=== PATIENT | female | born 1935 | race African-American/Black ===

== ENCOUNTER → 2019-01-29 | Outpatient (CLI) | payer OTHER ==
[~2019-01-29] MED LIST: CLON0.1T PO; DOCU-109 PO; FAMO-63 PO; FURO-69 PO; IRON; LEVO25TA55 PO; MULT1TAB52 PO; REGADENOSON 0.4 MG/5 ML DISP.SYRIN. IV ONE
--- NOTE | 2019-01-29 13:12 | CARD ---
MR#: [id number] Date of Study: 01/29/2019 Ordering Physician: GARY RAY, Referring Physician: GARY RAY Tech: Vivien Bergman RDCS APPROVED REPORT EXAM: Two-dimensional and M-mode echocardiogram with Doppler and color Doppler. Other Information Quality : AverageHR: 100bpm Rhythm : Tachycardia INDICATION SSS Surgery/Intervention ICD/Pacemaker: RISK FACTORS Hypertension 2D DIMENSIONS RVDd2.1 (2.9-3.5cm)Left Atrium(2D)2.7 (1.6-4.0cm) IVSd1.3 (0.7-1.1cm)Aortic Root(2D)3.0 (2.0-3.7cm) LVDd3.6 (3.9-5.9cm)LVOT Diameter2.1 (1.8-2.4cm) PWd1.3 (0.7-1.1cm)LVDs2.4 (2.5-4.0cm) FS (%) 33.0 %SV34.7 ml LVEF(%)62.5 (>50%) Aortic Valve AoV Peak Ramin.170.8cm/sAoV VTI31.8cm AO Peak GR.11.7mmHgLVOT Peak Ramin.113.5cm/s AO Mean GR.6mmHgAVA (VMAX)2.25cm2 ROSA (VTI)2.82ir5MK P 1/2 Hrzf688pk Mitral Valve MV E Xmhuqnyw148.8cm/sMV E Peak Gr.8mmHg MV DECEL JULG908htCC A Npqkabrr32.4cm/s MV E Mean Gr.3mmHgE/A Ratio5.0 MV A Kfeiifdb46ja Pulmonary Valve PV Peak Gccxgafi68.3cm/s Tricuspid Valve TR P. Ogijqadg056hb/sRAP TNFQTDDB2xcPb TR Peak Gr.31blFpHZQY32pfDd LEFT VENTRICLE The left ventricle is normal size. There is mild concentric left ventricular hypertrophy. The left ve ntricular systolic function is normal. The Ejection Fraction is 55-60%. There is normal LV segmental wall motion. RIGHT VENTRICLE The right ventricle is normal size. There is normal right ventricular wall thickness. The right ventr icular systolic function is normal. ATRIA The left atrium size is normal. The right atrium size is normal. The interatrial septum is intact wit h no evidence for an atrial septal defect or patent foramen ovale as noted on 2-D or Doppler imaging. AORTIC VALVE The aortic valve is mildly calcified. The aortic valve is trileaflet. Doppler and Color Flow revealed mild aortic regurgitation. There is no significant aortic valvular stenosis. There is no aortic valv ular vegetation. MITRAL VALVE The mitral valve is thickened but opens well. There is no evidence of mitral valve prolapse. There is no mitral valve stenosis. Doppler and Color-flow revealed mild mitral regurgitation. TRICUSPID VALVE The tricuspid valve is normal in structure and function. Doppler and Color Flow revealed mild tricusp id regurgitation. There is moderate pulmonary hypertension. The PA pressure was estimated at 56 mmHg. There is no tricuspid valve prolapse or vegetation. There is no tricuspid valve stenosis. PULMONIC VALVE The pulmonic valve is not well visualized. GREAT VESSELS The aortic root is normal in size. The ascending aorta is normal in size. The IVC is normal in size a nd collapses >50% with inspiration. PERICARDIAL EFFUSION There is no evidence of significant pericardial effusion. Critical Notification Critical Value: No <Conclusion> The left ventricular systolic function is normal. The Ejection Fraction is 55-60%. There is normal LV segmental wall motion. Mild aortic regurgitation. Mild mitral regurgitation. Mild tricuspid regurgitation. There is moderate pulmonary hypertension. The PA pressure was estimated at 56 mmHg. There is no evidence of significant pericardial effusion. Signed by : Gary Ray, Electronically Approved : 01/29/2019 13:11:45
--- NOTE | 2019-01-29 14:04 | RAD ---
MR#: [id number] Date of Study: 01/29/2019 Ordering Physician: GARY MARTIN Referring Physician: PEDRO CUNHA Tech: RT Shaggy StevensonR) (N) APPROVED REPORT Test Type: Pharmacological Stress Nurse/Tech: Judith Bellamy RN Test Indications: nonsustainable V tach Cardiac History: HTN, pacemaker Medications: See EMR Medical History: See EMR Resting ECG: SR with first degree AV block at 0.24 Resting Heart Rate: 87 bpm Resting Blood Pressure: 220/113mmHg Pretest Chest Pain: No chest pain Nurse/Tech Notes S1 S2 heart tones. Lung sounds clear. Consent: The procedure was explained to the patient in lay terms. Informed consent was witnessed. Westley eout was entered into [employer]. History and Stress Test performed by RADHA Prado [facility]. Details Pharmacologic stress testing was performed using 0.4mg per 5ml of regadenoson given intravenously ove r 7-10 seconds. Stress Symptoms Dyspnea, Nausea POST EXERCISE Reason for Termination: Infusion complete Max HR: 114 bpm Max Blood Pressure: 199/101mmHg Blood Pressure response to exercise: Normal blood pressure response during stress.Normal blood pressu re response during stress. Chest Pain: No. Arrhythmia: No. ST Change: No. INTERPRETATION Stress EKG Conclusion: No evidence of stress induced EKG changes. Imaging Protocol IMAGE PROTOCOL: Rest Tc-99m/stress Tc-99m 1 day Rest: Stress: Viability: Radiopharm.Tc99m NgrafphfcAl45u Sestamibi Dose10.1mCi 33mCi Duration 10min. 10min. Img Date 01/29/2019 01/29/2019 Inj-Img Sors41hda. 60min. Rest Admin Site:IV - Right AntecubitalAdministrator:RT Elva (Stacey)(N) Stress Admin Site: IV - Right AntecubitalAdministrator: RADHA Prado STRESS DATA End Diast. Vol.66.0mlAv. Heart Rate87.0bpm End Syst. Vol.22.0mlCO Index BSA0.0L/min Myocardial Sxak282.0gEject. Oiznkdiw25.0% Stress Rates Pk. Fill Rate3.47EDV/secLVtime Pk. Fill 145.60msec Pk. Empty Rate4.84ESV/secLVtime Pk. Sgudc806.29msec 11/20 Pk. Fill0.90EDV/sec Stress Scores Regional WT2.00Summed WT17.00 Regional WM0.00Summed WM2.00 The rest and stress images show normal perfusion, normal contraction and thickening. LV Perf. Quant 17 Seg. SSS0.00 17 Seg. SRS0.00 17 Seg. SDS0.00 Stress Defect Extent (% LAD)0.00Rest Defect Extent (% LAD)0.00Rev. Defect Extent (% LAD)0.00 Stress Defect Extent (% LCX) 0.00Rest Defect Extent (% LCX)0.00Rev. Defect Extent (% LCX)0.00 Stress Defect Extent (% RCA)0.00Rest Defect Extent (% RCA)0.00Rev. Defect Extent (% RCA)0.00 Stress Defect Extent (% ABDOULAYE)0.00Rest Defect Extent (% ABDOULAYE)0.00Rev. Defect Extent (% ABDOULAYE)0.00 Other Information Quality:Good Risk Assessment: Low Risk Conclusion 1. No evidence of EKG changes with stress testing. 2. Normal perfusion at stress/rest. 3. Low risk study. 4. EF > 60%. Signed by : Mark Lemon, Electronically Approved : 01/29/2019 14:04:06
== END | disposition home or self-care (01) ==
LOC: NM 10:09
PROVIDERS: ATTEND Internal Medicine Cardiovascular Disease
DX: I08.3 Combined rheumatic disorders of mitral, aortic and tricuspid valves (principal); I27.20 Pulmonary hypertension, unspecified; I44.0 Atrioventricular block, first degree; I49.5 Sick sinus syndrome; I47.2 Ventricular tachycardia; I10 Essential (primary) hypertension; Z95.0 Presence of cardiac pacemaker
CPT/HCPCS: 78452; 93017; 93306; 96374; A9500; J2785

== ENCOUNTER → 2020-02-08 | Outpatient (CLI) | payer OTHER, MEDICAID ==
[~2020-02-08] MED LIST changes: -REGADENOSON 0.4 MG/5 ML DISP.SYRIN. IV ONE
--- NOTE | 2020-02-08 16:05 | CARD ---
MR#: [id number] Date of Study: 02/08/2020 Ordering Physician: GARY MARTIN, Referring Physician: GARY MARTIN, Tech: Yenny Mccallum APPROVED REPORT EXAM: Two-dimensional and M-mode echocardiogram with Doppler and color Doppler. Other Information Quality : AverageHR: 82bpm INDICATION Arrhythmia Surgery/Intervention Pacemaker: Date: 2012 RISK FACTORS Hypertension 2D DIMENSIONS Left Atrium(2D)2.6 (1.6-4.0cm)IVSd1.5 (0.7-1.1cm) Aortic Root(2D)3.1 (2.0-3.7cm)LVDd3.4 (3.9-5.9cm) LVOT Diameter1.8 (1.8-2.4cm)PWd1.9 (0.7-1.1cm) LVDs2.3 (2.5-4.0cm)LVEF(%)61.0 (>50%) Aortic Valve AoV Peak Ramin.152.8cm/sAoV VTI28.0cm AO Peak GR.9.3mmHgLVOT Peak Ramin.93.6cm/s LVOT VTI 20.52cmAO Mean GR.5mmHg AI P 1/2 Ksti275mg Mitral Valve MV E Xsblasvz44.1cm/sMV E Peak Gr.109mmHg MV DECEL HDRD496awBD A Zzccnosx76.0cm/s MV E Mean Gr.2mmHgMV QGK92mr E/A Ratio2.2MVA (PHT)4.63cm2 TDI E/Lateral E'13.5E/Medial E'20.1 Pulmonary Valve PV Peak Yurginik075.3cm/sPV Peak Grad.5mmHg Tricuspid Valve TR P. Asubgjvz254sk/sRAP EFFHKSOQ1jpAu TR Peak Gr.96ytIbRCVB79hmAf Pulmonary Vein S1 Nbwiesfs02.6cm/sD2 Uelywcqe59.8cm/s PVa pscmvbqy787xfds LEFT VENTRICLE The left ventricle is normal size. There is moderate concentric left ventricular hypertrophy. The lef t ventricular systolic function is normal and the ejection fraction is within normal range. The Eject ion Fraction is 55-60%. There is normal LV segmental wall motion. Transmitral Doppler flow pattern is Grade II-pseudonormal filling dynamics. RIGHT VENTRICLE The right ventricle is normal size. There is normal right ventricular wall thickness. The right ventr icular systolic function is normal. There are probable device leads in the right ventricle and atrium . ATRIA The left atrium size is normal. The right atrium size is normal. The interatrial septum is intact wit h no evidence for an atrial septal defect or patent foramen ovale as noted on 2-D or Doppler imaging. AORTIC VALVE The aortic valve is normal in structure and function. Doppler and Color Flow revealed trace aortic re gurgitation. There is no significant aortic valvular stenosis. MITRAL VALVE The mitral valve is thickened but opens well. There is no evidence of mitral valve prolapse. There is no mitral valve stenosis. Doppler and Color-flow revealed mild to moderate mitral regurgitation. TRICUSPID VALVE The tricuspid valve is normal in structure and function. Doppler and Color Flow revealed mild to mode rate tricuspid regurgitation with an estimated PAP of 56 mmHg. There is no tricuspid valve stenosis. PULMONIC VALVE The pulmonic valve is not well visualized. Doppler and Color Flow revealed mild pulmonic valvular reg urgitation. GREAT VESSELS The aortic root is normal in size. The IVC is normal in size and collapses >50% with inspiration. PERICARDIAL EFFUSION There is no evidence of significant pericardial effusion. Critical Notification Critical Value: No <Conclusion> The left ventricle is normal size. The left ventricular systolic function is normal and the ejection fraction is within normal range. The Ejection Fraction is 55-60%. There is moderate concentric left ventricular hypertrophy. Doppler and Color Flow revealed trace aortic regurgitation. There is no significant aortic valvular stenosis. Doppler and Color-flow revealed mild to moderate mitral regurgitation. Doppler and Color Flow revealed mild to moderate tricuspid regurgitation with an estimated PAP of 56 mmHg. Signed by : Marc Dolan MD Electronically Approved : 02/08/2020 16:05:19
== END | disposition home or self-care (01) ==
LOC: ECHO 13:35
PROVIDERS: ATTEND Internal Medicine Cardiovascular Disease
DX: I08.8 Other rheumatic multiple valve diseases (principal); I49.5 Sick sinus syndrome
CPT/HCPCS: 93306

== ENCOUNTER 2021-01-23 11:22 | Inpatient (IN) | payer OTHER, MEDICAID ==
[~2021-01-23] VITALS: Ht 157.5 cm; Wt 52.5 kg
[~2021-01-23 11:22] MED LIST changes: +MULT-445 PO; -MULT1TAB52 PO
[2021-01-23 12:06] LABS: BILIRUBIN,URINE NEGATIVE (NEG); CLARITY,URINE CLEAR; COLOR,URINE YELLOW; NITRITE,URINE NEGATIVE (NEG); PROTEIN,URINE 30 mg/dL (NEG-TRACE); UROBILINOGEN,URINE 0.2 mg/dL (0.2 mg/dL)
--- NOTE | 2021-01-23 12:15 | RAD ---
EXAM: Chest, single view. HISTORY: Palpitations. COMPARISON: None. FINDINGS: A frontal view of the chest obtained. There is no infiltrate, pleural effusion or pneumotho rax. There is cardiomegaly. There is a cardiac pacemaker with leads overlying expected position. IMPRESSION: No acute pulmonary finding. Cardiomegaly. Electronically signed by: Rivka Garcia MD (01/23/2021 12:13 PM) [id number]
[2021-01-23 12:21] LABS: BACTERIA,URINE 0 /HPF (0-FEW); WBC,URINE OCC /HPF (0-4)
[2021-01-23 12:30] LABS: BASO # 0.1 x10^3/uL (0.0-0.2); BASO % 1 % (0-3); EOS # 0.1 x10^3/uL (0.0-0.7); EOS % 1 % (0-3); HEMATOCRIT 37.5 % (36.0-47.0); HEMOGLOBIN 12.3 g/dL (12.0-15.5); LYMPH # 0.7 x10^3/uL (1.0-4.8); LYMPH % 10 % (24-48); MEAN CORPUSCULAR HEMOGLOBIN 27 pg (25-35); MEAN CORPUSCULAR HGB CONC 33 g/dL (31-37); MEAN CORPUSCULAR VOLUME 83 fL (79-100); MONO # 0.3 x10^3/uL (0.0-1.1); MONO % 4 % (0-9); NEUT % 84 % (31-73); PLATELET COUNT 277 x10^3/uL (140-400); RED CELL DISTRIBUTION WIDTH 16.5 % (11.5-14.5); WHITE BLOOD COUNT 7.2 x10^3/uL (4.0-11.0)
--- NOTE | 2021-01-23 12:31 | EKG ---
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
[2021-01-23 13:02] LABS: CALCIUM 8.9 mg/dL (8.5-10.1); CREATININE 0.9 mg/dL (0.6-1.0); GFR 71.7; POTASSIUM 3.7 mmol/L (3.5-5.1)
[2021-01-23 13:12] LABS: ALBUMIN 3.5 g/dL (3.4-5.0); ALBUMIN/GLOBULIN RATIO 0.7 (1.0-1.7); MAGNESIUM 2.2 mg/dL (1.8-2.4); TOTAL BILIRUBIN 0.5 mg/dL (0.2-1.0); TOTAL PROTEIN 8.2 g/dL (6.4-8.2)
[2021-01-23] MEDS ORDERED: cloNIDine HCL 0.1 MG TABLET PO ONE (13:45)
[2021-01-23] MEDS ORDERED: ASPIRIN CHEWABLE 81 MG TABLET. PO ONE (13:45)
--- NOTE | 2021-01-23 15:47 | PHYS DOC ---
Past Medical History Past Medical History: Anemia, Anxiety, GERD, Hypertension, Hypothyroid Additional Past Medical Histor: SSS, OSTEOARTHRITIS, PVD, VIT D DEFICIENCY Past Surgical History: Pacemaker Smoking Status: Never Smoker Alcohol Use: None General Adult EDM: Chief Complaint: Palpitations HPI: HPI: Patient is a 85 year old female with history of anxiety GERD hypertension sick sinus syndrome hypothyroidism status post pacemaker presents emergency department for palpitations. Patient reports she has had palpitations for the past several weeks. She reports they keep her up at night sometimes. She reports intermittently she will have shortness of breath associated with it. No chest pain. Patient reports she called her family physician today and was told to come to the emergency department. Patient presents from nursing facility by EMS. Currently patient is asymptomatic. She reports she does not take any anticoagulants. Denies drugs, tobacco or alcohol. Review of Systems: Review of Systems: Review of Systems: Constitutional: Denies fever or chills Eyes: Denies redness or eye pain HENT: Denies nasal congestion or sore throat Respiratory: Denies cough Cardiovascular: Denies chest pain or palpitations GI: denies abdominal pain and nausea, denies vomiting or diarrhea : Denies dysuria or hematuria Musculoskeletal: Denies back pain or joint pain Integument: Denies rash or skin lesions Neurologic: Denies headache, focal weakness or sensory changes Heart Score: C/O Chest Pain: No Risk Factors: Risk Factors: DM, Current or recent (<one month) smoker, HTN, HLP, family history of CAD, obesity. Risk Scores: Score 0 - 3: 2.5% MACE over next 6 weeks - Discharge Home Score 4 - 6: 20.3% MACE over next 6 weeks - Admit for Clinical Observation Score 7 - 10: 72.7% MACE over next 6 weeks - Early Invasive Strategies Current Medications: Current Medications Medications (Trade) Dose Ordered Sig/Delaney Start Time Stop Time Status Last Admin Dose Admin Aspirin (Aspirin Chewable) 324 mg 1X ONCE 01/23/21 13:45 01/23/21 13:46 DC 01/23/21 14:11 324 MG Clonidine HCl (Catapres) 0.1 mg 1X ONCE 01/23/21 13:45 01/23/21 13:46 DC 01/23/21 14:10 0.1 MG Allergies: Allergies: Allergies Coded Allergies Type Severity Reaction Last Updated Verified amoxicillin Allergy Intermediate 01/29/19 No sulfamethoxazole Allergy Intermediate 01/29/19 No trimethoprim Allergy Intermediate 01/29/19 No Physical Exam: PE: Review of Systems: Constitutional: Denies fever or chills Eyes: Denies redness or eye pain HENT: Denies nasal congestion or sore throat Respiratory: Denies cough positive for intermittent palpitations and shortness of breath Cardiovascular: Denies chest pain or palpitations GI: denies abdominal pain and nausea, denies vomiting or diarrhea : Denies dysuria or hematuria Musculoskeletal: Denies back pain or joint pain Integument: Denies rash or skin lesions Neurologic: Denies headache, focal weakness or sensory changes Current Patient Data: Labs: Laboratory Tests Test 01/23/21 11:49 01/23/21 12:20 Urine Collection Type Void Urine Color Yellow Urine Clarity Clear Urine pH 7.0 (<5.0-8.0) Urine Specific [place] <=1.005 (1.000-1.030) Urine Protein 30 mg/dL (NEG-TRACE) Urine Glucose (UA) Negative mg/dL (NEG) Urine Ketones (Stick) Negative mg/dL (NEG) Urine Blood Negative (NEG) Urine Nitrite Negative (NEG) Urine Bilirubin Negative (NEG) Urine Urobilinogen Dipstick 0.2 mg/dL (0.2 mg/dL) Urine Leukocyte Esterase Negative (NEG) Urine RBC 1-2 /HPF (0-2) Urine WBC Occ /HPF (0-4) Urine Squamous Epithelial Cells Occ /LPF Urine Bacteria 0 /HPF (0-FEW) White Blood Count 7.2 x10^3/uL (4.0-11.0) Red Blood Count 4.50 x10^6/uL (3.50-5.40) Hemoglobin 12.3 g/dL (12.0-15.5) Hematocrit 37.5 % (36.0-47.0) Mean Corpuscular Volume 83 fL (79-100) Mean Corpuscular Hemoglobin 27 pg (25-35) Mean Corpuscular Hemoglobin Concent 33 g/dL (31-37) Red Cell Distribution Width 16.5 % (11.5-14.5) H Platelet Count 277 x10^3/uL (140-400) Neutrophils (%) (Auto) 84 % (31-73) H Lymphocytes (%) (Auto) 10 % (24-48) L Monocytes (%) (Auto) 4 % (0-9) Eosinophils (%) (Auto) 1 % (0-3) Basophils (%) (Auto) 1 % (0-3) Neutrophils # (Auto) 6.0 x10^3/uL (1.8-7.7) Lymphocytes # (Auto) 0.7 x10^3/uL (1.0-4.8) L Monocytes # (Auto) 0.3 x10^3/uL (0.0-1.1) Eosinophils # (Auto) 0.1 x10^3/uL (0.0-0.7) Basophils # (Auto) 0.1 x10^3/uL (0.0-0.2) Sodium Level 134 mmol/L (136-145) L Potassium Level 3.7 mmol/L (3.5-5.1) Chloride Level 99 mmol/L (98-107) Carbon Dioxide Level 28 mmol/L (21-32) Anion Gap 7 (6-14) Blood Urea Nitrogen 14 mg/dL (7-20) Creatinine 0.9 mg/dL (0.6-1.0) Estimated GFR (Cockcroft-Gault) 71.7 BUN/Creatinine Ratio 16 (6-20) Glucose Level 116 mg/dL (70-99) H Calcium Level 8.9 mg/dL (8.5-10.1) Magnesium Level 2.2 mg/dL (1.8-2.4) Total Bilirubin 0.5 mg/dL (0.2-1.0) Aspartate Amino Transferase (AST) 44 U/L (15-37) H Alanine Aminotransferase (ALT) 58 U/L (14-59) Alkaline Phosphatase 121 U/L (46-116) H Troponin I Quantitative 0.113 ng/mL (0.000-0.055) LM-Amx-O-Type Natriuretic Peptide 3925 pg/mL (0-449) H Total Protein 8.2 g/dL (6.4-8.2) Albumin 3.5 g/dL (3.4-5.0) Albumin/Globulin Ratio 0.7 (1.0-1.7) L Laboratory Tests 01/23/21 12:20 Laboratory Tests 01/23/21 12:20 Vital Signs: Vital Signs Date Time Temp Pulse Resp B/P (MAP) Pulse Ox O2 Delivery O2 Flow Rate FiO2 01/23/21 14:58 64 18 191/94 (126) 97 Room Air 01/23/21 11:25 98.3 98.3 EKG: EKG: EKG interpretation shows normal sinus rhythm with ventricular rate of 89 bpm. VA interval 238 ms. QRS duration of 88 ms. QTc of [address] segment elevations. Radiology/Procedures: Radiology/Procedures: PROCEDURE: CHEST AP ONLY EXAM: Chest, single view. HISTORY: Palpitations. COMPARISON: None. FINDINGS: A frontal view of the chest obtained. There is no infiltrate, pleural effusion or pneumothorax. There is cardiomegaly. There is a cardiac pacemaker with leads overlying expected position. IMPRESSION: No acute pulmonary finding. Cardiomegaly. Electronically signed by: Rivka Torres MD (01/23/2021 12:13 PM) [id number] DICTATED and SIGNED BY: RIVKA TORRES MD DATE: 01/23/21 [id number] 0 Course & Med Decision Making: Course & Med Decision Making Medical decision making: This is a 85-year-old female presents emergency department for palpitations and shortness of breath intermittently. Patient is currently asymptomatic. Awaiting pacemaker interrogation. Blood pressure is e levated. Patient does take clonidine at noon. Patient given 0.1 mg. Patient also takes Lasix. Patient's police matron is Dr. Lui. Patient has no leukocytosis. Troponin 0.11. Chest x-ray shows no acute findings. I did speak with the police matron Dr. Lui. I explained patient symptoms and findings. Does not recommend anticoagulation at this point point. Recommends aspirin. Patient given a full dose of aspirin. At this time based on patient's symptoms and findings will admit to the hospital for further observation and evaluation. Spoke with patient. Agreeable to admission. They are aware of all labs and imaging. All questions answered and patient stable at time of admission. Dragon Disclaimer: Dragon Disclaimer: This electronic medical record was generated, in whole or in part, using a voice recognition dictation system. I have spoken to the patient and/or caregivers. I have explained the patient's condition, diagnoses and treatment plan based on the information available to me at this time. I have answered the patient's and/or caregiver's questions and addressed my concerns. The patient and/or caregivers has a good understanding of the patient's diagnosis, condition and treatment plan as can be expected at this point. The patient has been stabilized within the capability of the emergency department. The patient will be transported for further care and management or will be moved to an observation or inpatient service. I have communicated with the staff or medical practitioner taking over this patient's care. Departure Departure Impression: Primary Impression: Palpitation Additional Impression: Elevated troponin Disposition: ADMITTED INPT THIS HOSP Admitting Physician: CLARICE (Spoke with Dr. Peralta at 1515. Accepted patient. Will see patient. Agrees with plan.) Referrals: SATISH LEON MD (PCP) DARIEL LUCAS DO Jan 23, 2021 15:47
[2021-01-23] MEDS ORDERED: ONDANSETRON PF 4 MG/2 ML VIAL. IV PRN (16:00)
--- NOTE | 2021-01-23 17:49 | HP ---
ADMIT DATE: 01/23/2021 CHIEF COMPLAINT: Palpitations. HISTORY OF PRESENT ILLNESS: The patient is a pleasant elderly female who is retired. She used to work at the [employer]. Basically, she presented with palpitations today. While she was in the ER, we noticed that her troponin was slightly high at 0.1. We called Cardiology. They would like to have the patient admitted. We are going to check serial enzymes and serial EKGs and do a cardiac workup. It should be noted that the patient rates her symptoms at 6/10. She has associated weakness. It has been occurring for several days and describes it as very irritating. PAST MEDICAL HISTORY: Anxiety, anemia, GERD, hypertension, hypothyroidism, sick sinus syndrome, osteoarthritis, peripheral vascular disease, vitamin D deficiency, pacemaker. ALLERGIES: AMOXICILLIN, SULFA, AND TRIMETHOPRIM. FAMILY HISTORY: Diabetes. SOCIAL HISTORY: She does not drink, smoke or take drugs. She is retired from the [employer]. MEDICATIONS: Reviewed, please refer to the MRAD. REVIEW OF SYSTEMS: GENERAL: No history of weight change, weakness or fevers. SKIN: No bruising, hair changes or rashes. EYES: No blurred, double or loss of vision. NOSE AND THROAT: No history of nosebleeds, hoarseness or sore throat. HEART: The patient complains of palpitations. LUNGS: Denies cough, hemoptysis, wheezing or shortness of breath. GASTROINTESTINAL: Denies changes in appetite, nausea, vomiting, diarrhea or constipation. GENITOURINARY: No history of frequency, urgency, hesitancy or nocturia. NEUROLOGIC: Denies history of numbness, tingling, tremor or weakness. PSYCHIATRIC: No history of panic, anxiety or depression. ENDOCRINE: No history of heat or cold intolerance, polyuria or polydipsia. EXTREMITIES: Denies muscle weakness, joint pain, pain on walking or stiffness. PHYSICAL EXAMINATION: VITALS: Within normal limits and are stable. GENERAL: No apparent distress. Alert and oriented. HEENT: Normal cephalic atraumatic, external auditory canals are patent EYES: Extraocular muscles are intact, pupils are equally round and reactive to light and accommodation MUSCULOSKELETAL: Well developed, well nourished, good range of motion ENDOCRINE: No thyromegaly was palpated LYMPHATICS: No cervical chain or axillary nodes were noted HEMATOPOIETIC: No bruising NECK: Supple, no JVD, no thyromegaly was noted. LUNGS: Clear to auscultation in all lung jaquez without rhonchi or wheezing. HEART: RRR, S1, S2 present. Peripheral pulses intact, no obvious murmurs were noted. ABDOMEN: Soft, nontender. Positive bowel sounds no organomegaly, normal bowel sounds. EXTREMITIES: She has 1+ edema. NEUROLOGIC: Normal speech, normal tone. A & O x3, moves all extremities, no obvious focal deficits. PSYCHIATRIC: Normal affect, normal mood. Stable. SKIN: No ulcerations or rashes, good skin turgor, no jaundice. VASCULAR: Good capillary refill, neurovascular bundle appears to be intact. LABORATORY DATA: Hematology is normal. Electrolytes are normal other than a sodium of 134. Troponin is 0.1. We repeated it. It is still 0.1. BNP is high at 3925. ASSESSMENT AND PLAN: Palpitations, elevated troponin, acute on chronic systolic and diastolic heart failure and hyponatremia. The patient will be admitted. We will consult Cardiology. Cardiac monitoring. Serial enzymes, serial EKGs, echocardiogram. She might need a stress test, but we will await Cardiology input. Home meds, DVT prophylaxis. Full code. Long-term prognosis is guarded. AMISHA OROZCO DO DR: TANO/jonel JOB#: [id number] / [id number]
[2021-01-23 18:02] VITALS: BP 198/111
[2021-01-23 19:35] VITALS: BP 174/100
[2021-01-23 23:20] VITALS: BP 167/101
[2021-01-23] MEDS ORDERED: CALC500T31 PO (23:26)
[2021-01-23] MEDS ORDERED: LISI-130 PO (23:26)
[2021-01-23] MEDS ORDERED: GUAI1TAB15 PO (23:26)
[2021-01-23] MEDS ORDERED: POTA8CAP19 PO (23:26)
[2021-01-23] MEDS ORDERED: ACET325T21 PO (23:26)
[2021-01-23] MEDS ORDERED: BENZ200C47 PO (23:26)
[2021-01-23] MEDS ORDERED: FEXO180T81 PO (23:26)
[2021-01-23] MEDS ORDERED: ATEN50TA PO (23:26)
[2021-01-23] MEDS ORDERED: ALEN70TA71 PO (23:26)
[2021-01-23] MEDS ORDERED: BRIM5DRO2 OP (23:26)
[2021-01-23] MEDS ORDERED: ALPR0.254 PO (23:26)
[2021-01-23] MEDS ORDERED: CLON0.1T PO (23:26)
[2021-01-23] MEDS ORDERED: LATA2.5D2 EACHEYE (23:26)
[2021-01-23] MEDS ORDERED: MULT-766 PO (23:43)
[2021-01-23] MEDS ORDERED: BENZONATATE 100 MG CAPSULE. PO PRN (23:45)
[2021-01-23] MEDS ORDERED: ALPRAZolam 0.25 MG TABLET PO PRN (23:45)
[2021-01-23] MEDS ORDERED: ACETAMINOPHEN 325 MG TABLET. PO PRN (23:45)
[2021-01-24] MEDS: cloNIDine HCL 0.1 MG TABLET PO PRN (00:05)
[2021-01-24] MEDS: CALCIUM CARBONATE 500 MG TABLET PO SCH ×3 (03:00→17:00)
[2021-01-24 03:35] VITALS: BP_SYST 123; BP_SYST 151; BP_DIAS 62; BP_DIAS 89
[2021-01-24 07:00] VITALS: BP 177/91
[2021-01-24] MEDS: LEVOTHYROXINE 25 MCG TABLET. PO SCH (07:26)
[2021-01-24] MEDS ORDERED: GUAIFENESIN PO SCH (09:00)
[2021-01-24] MEDS ORDERED: POTASSIUM CHLORIDE 10 MEQ TABLET.ER. PO SCH (09:00)
[2021-01-24] MEDS ORDERED: ATENOLOL 50 MG TABLET. PO SCH (09:00)
[2021-01-24] MEDS ORDERED: NON FORMULARY ITEM (Brimonidine Tartrate/Timolol (Combigan Eye Drops) 5 ML) OP SCH (09:00)
[2021-01-24] MEDS ORDERED: PSEUDOEPHEDRNE HCL PO SCH (09:00)
[2021-01-24] MEDS: CETIRIZINE HCL 10 MG TABLET. PO SCH (09:38)
[2021-01-24] MEDS: FAMOTIDINE 20 MG TABLET. PO SCH ×2 (09:39→21:45)
[2021-01-24] MEDS: PSEUDOEPHEDRINE 30 MG TABLET. PO SCH ×2 (09:39→21:00)
[2021-01-24] MEDS: MULTIVITAMIN with MINERAL TABLET. PO SCH (09:39)
[2021-01-24] MEDS: LISINOPRIL 20 MG TABLET PO SCH (09:43)
[2021-01-24] MEDS: TIMOLOL 0.5% OPHTH SOLUTION 5ML BOTTLE. OD SCH ×2 (09:43→21:44)
[2021-01-24] MEDS: BRIMONIDINE 0.2% OPHTH SOLUTION 5ML BOTTLE. OD SCH ×2 (09:43→21:44)
--- NOTE | 2021-01-24 10:33 | PDOC2 ---
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 She has been having this worse in the last few days. The other it happened multiple times the whole day intermittently. No associated chest pain, SOA, dizziness. This made her anxious. The only medications adjusted on her regimen was her thyroid med. It appears that the change was just brand. Reviewing her medications she does take sudafed with cough medicine. No fever or chills, excessive caffeine use. PAST MEDICAL HISTORY Cardiovascular: HTN, Valve insufficiency, Other (NSVT, SSS) GI: Constipation, GERD Psych: Anxiety Musculoskeletal: Osteoarthritis ENT: Allergic Rhinitis Endocrine: Hypothyroidism, Osteoporosis Dermatology: No pertinent hx PAST SURGICAL HISTORY Past Surgical History: Pacemaker ([facility] [facility]), Appendectomy, Arthroscopy (left hip ORIF, right ankle ORIF), Hysterectomy (partial) FAMILY HISTORY Family History noncontributory to CV SOCIAL HISTORY Smoke: No ALCOHOL: none Drugs: None Lives: [facility] CURRENT MEDICATIONS CURRENT MEDICATIONS Current Medications Medications (Trade) Dose Ordered Sig/Delaney Route PRN Reason Start Time Stop Time Status Last Admin Dose Admin Clonidine HCl (Catapres) 0.1 mg 1X ONCE PO 01/23/21 13:45 01/23/21 13:46 DC 01/23/21 14:10 Aspirin (Aspirin Chewable) 324 mg 1X ONCE PO 01/23/21 13:45 01/23/21 13:46 DC 01/23/21 14:11 Atenolol (Tenormin) 50 mg DAILY PO 01/24/21 09:00 01/24/21 09:39 Calcium Carbonate/ Glycine (Oscal) 1,500 mg BIDWMEALS PO 01/24/21 03:00 01/24/21 09:38 Clonidine HCl (Catapres) 0.1 mg PRN Q4HRS PRN PO HIGH BP 01/23/21 23:45 01/24/21 00:05 Famotidine (Pepcid) 20 mg BID PO 01/24/21 09:00 01/24/21 09:39 Levothyroxine Sodium (Synthroid) 25 mcg DAILY06 PO 01/24/21 06:00 01/24/21 07:26 Lisinopril (Prinivil) 40 mg DAILY PO 01/24/21 09:00 01/24/21 09:43 Cetirizine HCl (ZyrTEC) 10 mg DAILY PO 01/24/21 09:00 01/24/21 09:38 Multivitamins (Thera M Plus) 1 tab DAILY PO 01/24/21 09:00 01/24/21 09:39 Potassium Chloride (Klor-Con) 10 meq QODAY PO 01/24/21 09:00 01/24/21 09:39 Guaifenesin (Mucinex) 600 mg Q12HR PO 01/24/21 09:00 01/24/21 09:39 Pseudoephedrine HCl (Sudafed) 60 mg Q12HR PO 01/24/21 09:00 01/24/21 09:39 Brimonidine Tartrate (Alphagan) 1 drop BID OD 01/24/21 09:00 01/24/21 09:43 Timolol Maleate (Timoptic 0.5% Ophth) 1 drop BID OD 01/24/21 09:00 01/24/21 09:43 ALLERGIES ALLERGIES: Coded Allergies: amoxicillin (Unverified Allergy, Intermediate, 01/29/19) sulfamethoxazole (Unverified Allergy, Intermediate, 01/29/19) trimethoprim (Unverified Allergy, Intermediate, 01/29/19) ROS Review of System 14 point ROS evaluated with pertinent positives noted per HPI PHYSICAL EXAM General: Alert, Oriented X3, Cooperative, No acute distress HEENT: Atraumatic, Mucous membr. moist/pink Lungs: Clear to auscultation, Normal air movement Heart: Regular rate (SR), Normal S1, Normal S2, No murmurs Abdomen: Soft, No tenderness Extremities: No cyanosis, No edema Skin: No breakdown, No significant lesion Neuro: Normal speech, Sensation intact Psych/Mental Status: Mental status NL, Mood NL MUSCULOSKELETAL: Osteoarthritic changes both hands VITALS/I&O VITALS/I&O: Vital Signs Date Time Temp Pulse Resp B/P (MAP) Pulse Ox O2 Delivery O2 Flow Rate FiO2 01/24/21 09:43 70 177/91 01/24/21 07:00 98.1 20 95 Room Air 98.1 I & O 01/23/21 01/23/21 01/24/21 15:00 23:00 07:00 Intake Total 150 ml Output Total 900 ml 500 ml 800 ml Balance -900 ml -500 ml -650 ml LABS Lab: Laboratory Tests Test 01/23/21 11:49 01/23/21 12:20 01/23/21 16:01 01/23/21 21:40 Urine Collection Type Void Urine Color Yellow Urine Clarity Clear Urine pH 7.0 (<5.0-8.0) Urine Specific [place] <=1.005 (1.000-1.030) Urine Protein 30 mg/dL (NEG-TRACE) Urine Glucose (UA) Negative mg/dL (NEG) Urine Ketones (Stick) Negative mg/dL (NEG) Urine Blood Negative (NEG) Urine Nitrite Negative (NEG) Urine Bilirubin Negative (NEG) Urine Urobilinogen Dipstick 0.2 mg/dL (0.2 mg/dL) Urine Leukocyte Esterase Negative (NEG) Urine RBC 1-2 /HPF (0-2) Urine WBC Occ /HPF (0-4) Urine Squamous Epithelial Cells Occ /LPF Urine Bacteria 0 /HPF (0-FEW) White Blood Count 7.2 x10^3/uL (4.0-11.0) Red Blood Count 4.50 x10^6/uL (3.50-5.40) Hemoglobin 12.3 g/dL (12.0-15.5) Hematocrit 37.5 % (36.0-47.0) Mean Corpuscular Volume 83 fL (79-100) Mean Corpuscular Hemoglobin 27 pg (25-35) Mean Corpuscular Hemoglobin Concent 33 g/dL (31-37) Red Cell Distribution Width 16.5 % (11.5-14.5) H Platelet Count 277 x10^3/uL (140-400) Neutrophils (%) (Auto) 84 % (31-73) H Lymphocytes (%) (Auto) 10 % (24-48) L Monocytes (%) (Auto) 4 % (0-9) Eosinophils (%) (Auto) 1 % (0-3) Basophils (%) (Auto) 1 % (0-3) Neutrophils # (Auto) 6.0 x10^3/uL (1.8-7.7) Lymphocytes # (Auto) 0.7 x10^3/uL (1.0-4.8) L Monocytes # (Auto) 0.3 x10^3/uL (0.0-1.1) Eosinophils # (Auto) 0.1 x10^3/uL (0.0-0.7) Basophils # (Auto) 0.1 x10^3/uL (0.0-0.2) Sodium Level 134 mmol/L (136-145) L Potassium Level 3.7 mmol/L (3.5-5.1) Chloride Level 99 mmol/L (98-107) Carbon Dioxide Level 28 mmol/L (21-32) Anion Gap 7 (6-14) Blood Urea Nitrogen 14 mg/dL (7-20) Creatinine 0.9 mg/dL (0.6-1.0) Estimated GFR (Cockcroft-Gault) 71.7 BUN/Creatinine Ratio 16 (6-20) Glucose Level 116 mg/dL (70-99) H Calcium Level 8.9 mg/dL (8.5-10.1) Magnesium Level 2.2 mg/dL (1.8-2.4) Total Bilirubin 0.5 mg/dL (0.2-1.0) Aspartate Amino Transferase (AST) 44 U/L (15-37) H Alanine Aminotransferase (ALT) 58 U/L (14-59) Alkaline Phosphatase 121 U/L (46-116) H Troponin I Quantitative 0.113 ng/mL (0.000-0.055) 0.130 ng/mL (0.000-0.055) 0.166 ng/mL (0.000-0.055) MR-Nmc-C-Type Natriuretic Peptide 3925 pg/mL (0-449) H Total Protein 8.2 g/dL (6.4-8.2) Albumin 3.5 g/dL (3.4-5.0) Albumin/Globulin Ratio 0.7 (1.0-1.7) L Laboratory Tests 01/23/21 12:20 Laboratory Tests 01/23/21 12:20 ECHOCARDIOGRAM ECHOCARDIOGRAM <Conclusion> The left ventricle is normal size. The left ventricular systolic function is normal and the ejection fraction is within normal range. The Ejection Fraction is 55-60%. There is moderate concentric left ventricular hypertrophy. Doppler and Color Flow revealed trace aortic regurgitation. There is no significant aortic valvular stenosis. Doppler and Color-flow revealed mild to moderate mitral regurgitation. Doppler and Color Flow revealed mild to moderate tricuspid regurgitation with an estimated PAP of 56 mmHg. DATE: 02/08/20 1542 STRESS TEST STRESS TEST Conclusion 1. No evidence of EKG changes with stress testing. 2. Normal perfusion at stress/rest. 3. Low risk study. 4. EF > 60%. DATE: 01/29/19 1404 ASSESSMENT/PLAN ASSESSMENT/PLAN 1. Palpitations: Likely from paroxysmal atrial flutter. Presently SR with first degree AV block 2. SSS with PPM in situ: [facility] [facility]. DDDR with good battery life. <1% afib burden. 3. HTN urgency 4. Valvular insufficiency. MR/TR 5. Hypothyroidism: on replacement 6. Anxiety 7. Mild troponin elevation: CP free. EKG SR with no acute changes. Possibly from uncontrolled HTN and/or arrhythmia, doubt ACS. 8. Paroxysmal atrial flutter: bursts this am with HVR Recommendations 1. TSH, free T4 2. FLP, TTE 3. Med review noted with sudafed use. Will need discontinue. 5. Continue lisinopril. ASA for now, will recheck burden as an outpt and will note need for NOAC and antiarrhythmic. Change atenolol to metoprolol 50 mg bid. 6. Will consider for outpt MPI GARY MARTIN MD 01/24/211911: CARDIAC CONSULT ASSESSMENT/PLAN ASSESSMENT/PLAN Patient seen and examined. Agree with HELP DESK SUPPORT SPECIALIST's assessment and plan. Symptoms probably due to paroxysmal atrial flutter Presently in SR Device check showed normal function and brief episodes of AF recorded Agree with metoprolol for rate control We will hold of AC for now and if she continues to have PAF we will consider antiarrhythmic as well as AC therapy BP better controlled since admission Slight trop elevation prob demand ischemia We will consider ischemic eval as outpatient Thank you for your consultation ERIC REED APRN Jan 24, 2021 10:33 GARY MARTIN MD Jan 24, 2021 19:12
--- NOTE | 2021-01-24 10:33 | NUR ---
SS following for discharge planning. SS reviewed pt chart and discussed with pt RN. Pt is from [facility], ; fax [phone], and is currently on room air. PT/OT ordered. Per [facility], pt does not need COVID19 test if returning. Pt's RN notified. Per Gloria in PT, pt should be able to return to assisted living at discharge. SS will continue to follow for discharge planning.
--- NOTE | 2021-01-24 10:56 | PDOC ---
[employer] PROGRESS NOTE Date of Service DOS: DATE: 01/24/21 TIME: 10:55 Chief Complaint Chief Complaint Palpitations History of Present Illness History of Present Illness Patient is a 85 year old female with history of anxiety GERD hypertension sick sinus syndrome hypothyroidism status post pacemaker who presented on 01/23 to the emergency department for palpitations. Patient reported she has had palpitations that sometimes kept her up at night for the past several weeks. Intermittent shortness of breath associated with palpitation episodes. Denied chest pain. Patient called her PCP abot symptoms and was instructed to come to the ED. She arrived via EMS from her [place] [facility]. patient was asymptomatic on arrival. EED work up found elevated troponin at .113. Cardiology was consulted and they advised admitting the patient. Patient then complained of mild weakness. 01/24/21 Patient seen in room Patient observed walking with PT//OT in the hallway Case discussed with RN and case management Patient chart reviewed Vitals/I&O Vitals/I&O: Vital Signs Date Time Temp Pulse Resp B/P (MAP) Pulse Ox O2 Delivery O2 Flow Rate FiO2 01/24/21 09:43 70 177/91 01/24/21 07:00 98.1 20 95 Room Air 98.1 I & O 01/23/21 01/23/21 01/24/21 15:00 23:00 07:00 Intake Total 150 ml Output Total 900 ml 500 ml 800 ml Balance -900 ml -500 ml -650 ml Physical Exam General: Alert, Oriented X3, Cooperative, No acute distress Heart: Regular rate (SR), Normal S1, Normal S2, No murmurs Abdomen: Soft, No tenderness Extremities: No cyanosis, No edema Skin: No breakdown, No significant lesion Labs Labs: Laboratory Tests Test 01/23/21 11:49 01/23/21 12:20 01/23/21 16:01 01/23/21 21:40 Urine Collection Type Void Urine Color Yellow Urine Clarity Clear Urine pH 7.0 (<5.0-8.0) Urine Specific [place] <=1.005 (1.000-1.030) Urine Protein 30 mg/dL (NEG-TRACE) Urine Glucose (UA) Negative mg/dL (NEG) Urine Ketones (Stick) Negative mg/dL (NEG) Urine Blood Negative (NEG) Urine Nitrite Negative (NEG) Urine Bilirubin Negative (NEG) Urine Urobilinogen Dipstick 0.2 mg/dL (0.2 mg/dL) Urine Leukocyte Esterase Negative (NEG) Urine RBC 1-2 /HPF (0-2) Urine WBC Occ /HPF (0-4) Urine Squamous Epithelial Cells Occ /LPF Urine Bacteria 0 /HPF (0-FEW) White Blood Count 7.2 x10^3/uL (4.0-11.0) Red Blood Count 4.50 x10^6/uL (3.50-5.40) Hemoglobin 12.3 g/dL (12.0-15.5) Hematocrit 37.5 % (36.0-47.0) Mean Corpuscular Volume 83 fL (79-100) Mean Corpuscular Hemoglobin 27 pg (25-35) Mean Corpuscular Hemoglobin Concent 33 g/dL (31-37) Red Cell Distribution Width 16.5 % (11.5-14.5) Platelet Count 277 x10^3/uL (140-400) Neutrophils (%) (Auto) 84 % (31-73) Lymphocytes (%) (Auto) 10 % (24-48) Monocytes (%) (Auto) 4 % (0-9) Eosinophils (%) (Auto) 1 % (0-3) Basophils (%) (Auto) 1 % (0-3) Neutrophils # (Auto) 6.0 x10^3/uL (1.8-7.7) Lymphocytes # (Auto) 0.7 x10^3/uL (1.0-4.8) Monocytes # (Auto) 0.3 x10^3/uL (0.0-1.1) Eosinophils # (Auto) 0.1 x10^3/uL (0.0-0.7) Basophils # (Auto) 0.1 x10^3/uL (0.0-0.2) Sodium Level 134 mmol/L (136-145) Potassium Level 3.7 mmol/L (3.5-5.1) Chloride Level 99 mmol/L (98-107) Carbon Dioxide Level 28 mmol/L (21-32) Anion Gap 7 (6-14) Blood Urea Nitrogen 14 mg/dL (7-20) Creatinine 0.9 mg/dL (0.6-1.0) Estimated GFR (Cockcroft-Gault) 71.7 BUN/Creatinine Ratio 16 (6-20) Glucose Level 116 mg/dL (70-99) Calcium Level 8.9 mg/dL (8.5-10.1) Magnesium Level 2.2 mg/dL (1.8-2.4) Total Bilirubin 0.5 mg/dL (0.2-1.0) Aspartate Amino Transf (AST/SGOT) 44 U/L (15-37) Alanine Aminotransferase (ALT/SGPT) 58 U/L (14-59) Alkaline Phosphatase 121 U/L (46-116) Troponin I Quantitative 0.113 ng/mL (0.000-0.055) 0.130 ng/mL (0.000-0.055) 0.166 ng/mL (0.000-0.055) VD-Yul-J-Type Natriuretic Peptide 3925 pg/mL (0-449) Total Protein 8.2 g/dL (6.4-8.2) Albumin 3.5 g/dL (3.4-5.0) Albumin/Globulin Ratio 0.7 (1.0-1.7) Review of Systems Review of Systems: Denied chest pain, denies SOB, denies abdominal pain Assessment and Plan Assessmemt and Plan Problems Medical Problems: (1) Elevated troponin Status: Acute (2) Palpitation Status: Acute 1) Serial Cardiac enzymes 2) Serial EKG 3) Echocardiogram 4) manager monitoring 5) Continue Home Meds 6) DVT Prophylaxis 7) Covid Test 8) PT/OT 9) Observation Comment Review of Relevant I have reviewed the following items william (where applicable) has been applied. Medications: Current Medications Medications (Trade) Dose Ordered Sig/Delaney Route PRN Reason Start Time Stop Time Status Last Admin Dose Admin Clonidine HCl (Catapres) 0.1 mg 1X ONCE PO 01/23/21 13:45 01/23/21 13:46 DC 01/23/21 14:10 Aspirin (Aspirin Chewable) 324 mg 1X ONCE PO 01/23/21 13:45 01/23/21 13:46 DC 01/23/21 14:11 Atenolol (Tenormin) 50 mg DAILY PO 01/24/21 09:00 01/24/21 09:39 Calcium Carbonate/ Glycine (Oscal) 1,500 mg BIDWMEALS PO 01/24/21 03:00 01/24/21 09:38 Clonidine HCl (Catapres) 0.1 mg PRN Q4HRS PRN PO HIGH BP 01/23/21 23:45 01/24/21 00:05 Famotidine (Pepcid) 20 mg BID PO 01/24/21 09:00 01/24/21 09:39 Levothyroxine Sodium (Synthroid) 25 mcg DAILY06 PO 01/24/21 06:00 01/24/21 07:26 Lisinopril (Prinivil) 40 mg DAILY PO 01/24/21 09:00 01/24/21 09:43 Cetirizine HCl (ZyrTEC) 10 mg DAILY PO 01/24/21 09:00 01/24/21 09:38 Multivitamins (Thera M Plus) 1 tab DAILY PO 01/24/21 09:00 01/24/21 09:39 Potassium Chloride (Klor-Con) 10 meq QODAY PO 01/24/21 09:00 01/24/21 09:39 Guaifenesin (Mucinex) 600 mg Q12HR PO 01/24/21 09:00 01/24/21 09:39 Pseudoephedrine HCl (Sudafed) 60 mg Q12HR PO 01/24/21 09:00 01/24/21 09:39 Brimonidine Tartrate (Alphagan) 1 drop BID OD 01/24/21 09:00 01/24/21 09:43 Timolol Maleate (Timoptic 0.5% Ophth) 1 drop BID OD 01/24/21 09:00 01/24/21 09:43 Justifications for Admission Other Justification AMISHA OROZCO III DO Jan 24, 2021 10:55
[2021-01-24 11:00] VITALS: BP 177/98
[2021-01-24] MEDS ORDERED: cloNIDine TTS-1 1 PATCH PATCH.TDWK TD SCH (11:00)
--- NOTE | 2021-01-24 11:01 | PDOC ---
[employer] PROGRESS NOTE Date of Service DOS: DATE: 01/24/21 TIME: 10:57 Chief Complaint Chief Complaint Palpitations Elevated Troponin Hypothyroid History of Present Illness History of Present Illness Patient is a 85 year old female with history of anxiety GERD hypertension sick sinus syndrome hypothyroidism status post pacemaker who presented on 01/23 to the emergency department for palpitations. Patient reported she has had palpitations that sometimes kept her up at night for the past several weeks. Intermittent shortness of breath associated with palpitation episodes. Denied chest pain. Patient called her PCP abot symptoms and was instructed to come to the ED. She arrived via EMS from her detention. patient was asymptomatic on arrival. EED work up found elevated troponin at .113. Cardiology was consulted and they advised admitting the patient. Patient then complained of mild weakness. 01/24/21 Patient seen in room Patient observed walking with PT//OT in the hallway Case discussed with RN and case management Patient chart reviewed Vitals/I&O Vitals/I&O: Vital Signs Date Time Temp Pulse Resp B/P (MAP) Pulse Ox O2 Delivery O2 Flow Rate FiO2 01/24/21 09:43 70 177/91 01/24/21 07:00 98.1 20 95 Room Air 98.1 I & O 01/23/21 01/23/21 01/24/21 15:00 23:00 07:00 Intake Total 150 ml Output Total 900 ml 500 ml 800 ml Balance -900 ml -500 ml -650 ml Physical Exam General: Alert, Oriented X3, Cooperative, No acute distress Heart: Regular rate (SR), Normal S1, Normal S2, No murmurs Abdomen: Soft, No tenderness Extremities: No cyanosis, No edema Skin: No breakdown, No significant lesion Labs Labs: Laboratory Tests Test 01/23/21 11:49 01/23/21 12:20 01/23/21 16:01 01/23/21 21:40 Urine Collection Type Void Urine Color Yellow Urine Clarity Clear Urine pH 7.0 (<5.0-8.0) Urine Specific [place] <=1.005 (1.000-1.030) Urine Protein 30 mg/dL (NEG-TRACE) Urine Glucose (UA) Negative mg/dL (NEG) Urine Ketones (Stick) Negative mg/dL (NEG) Urine Blood Negative (NEG) Urine Nitrite Negative (NEG) Urine Bilirubin Negative (NEG) Urine Urobilinogen Dipstick 0.2 mg/dL (0.2 mg/dL) Urine Leukocyte Esterase Negative (NEG) Urine RBC 1-2 /HPF (0-2) Urine WBC Occ /HPF (0-4) Urine Squamous Epithelial Cells Occ /LPF Urine Bacteria 0 /HPF (0-FEW) White Blood Count 7.2 x10^3/uL (4.0-11.0) Red Blood Count 4.50 x10^6/uL (3.50-5.40) Hemoglobin 12.3 g/dL (12.0-15.5) Hematocrit 37.5 % (36.0-47.0) Mean Corpuscular Volume 83 fL (79-100) Mean Corpuscular Hemoglobin 27 pg (25-35) Mean Corpuscular Hemoglobin Concent 33 g/dL (31-37) Red Cell Distribution Width 16.5 % (11.5-14.5) Platelet Count 277 x10^3/uL (140-400) Neutrophils (%) (Auto) 84 % (31-73) Lymphocytes (%) (Auto) 10 % (24-48) Monocytes (%) (Auto) 4 % (0-9) Eosinophils (%) (Auto) 1 % (0-3) Basophils (%) (Auto) 1 % (0-3) Neutrophils # (Auto) 6.0 x10^3/uL (1.8-7.7) Lymphocytes # (Auto) 0.7 x10^3/uL (1.0-4.8) Monocytes # (Auto) 0.3 x10^3/uL (0.0-1.1) Eosinophils # (Auto) 0.1 x10^3/uL (0.0-0.7) Basophils # (Auto) 0.1 x10^3/uL (0.0-0.2) Sodium Level 134 mmol/L (136-145) Potassium Level 3.7 mmol/L (3.5-5.1) Chloride Level 99 mmol/L (98-107) Carbon Dioxide Level 28 mmol/L (21-32) Anion Gap 7 (6-14) Blood Urea Nitrogen 14 mg/dL (7-20) Creatinine 0.9 mg/dL (0.6-1.0) Estimated GFR (Cockcroft-Gault) 71.7 BUN/Creatinine Ratio 16 (6-20) Glucose Level 116 mg/dL (70-99) Calcium Level 8.9 mg/dL (8.5-10.1) Magnesium Level 2.2 mg/dL (1.8-2.4) Total Bilirubin 0.5 mg/dL (0.2-1.0) Aspartate Amino Transf (AST/SGOT) 44 U/L (15-37) Alanine Aminotransferase (ALT/SGPT) 58 U/L (14-59) Alkaline Phosphatase 121 U/L (46-116) Troponin I Quantitative 0.113 ng/mL (0.000-0.055) 0.130 ng/mL (0.000-0.055) 0.166 ng/mL (0.000-0.055) KR-Arv-L-Type Natriuretic Peptide 3925 pg/mL (0-449) Total Protein 8.2 g/dL (6.4-8.2) Albumin 3.5 g/dL (3.4-5.0) Albumin/Globulin Ratio 0.7 (1.0-1.7) Review of Systems Review of Systems: Denied chest pain, denies SOB, denies abdominal pain Assessment and Plan Assessmemt and Plan Problems Medical Problems: (1) Elevated troponin Status: Acute (2) Palpitation Status: Acute 1) Serial Cardiac enzymes 2) Serial EKG 3) Echocardiogram 4) telemetry monitor 5) Continue Home Meds 6) DVT Prophylaxis 7) Covid Test 8) PT/OT 9) Observation Comment Review of Relevant I have reviewed the following items william (where applicable) has been applied. Medications: Current Medications Medications (Trade) Dose Ordered Sig/Delaney Route PRN Reason Start Time Stop Time Status Last Admin Dose Admin Clonidine HCl (Catapres) 0.1 mg 1X ONCE PO 01/23/21 13:45 01/23/21 13:46 DC 01/23/21 14:10 Aspirin (Aspirin Chewable) 324 mg 1X ONCE PO 01/23/21 13:45 01/23/21 13:46 DC 01/23/21 14:11 Atenolol (Tenormin) 50 mg DAILY PO 01/24/21 09:00 01/24/21 09:39 Calcium Carbonate/ Glycine (Oscal) 1,500 mg BIDWMEALS PO 01/24/21 03:00 01/24/21 09:38 Clonidine HCl (Catapres) 0.1 mg PRN Q4HRS PRN PO HIGH BP 01/23/21 23:45 01/24/21 00:05 Famotidine (Pepcid) 20 mg BID PO 01/24/21 09:00 01/24/21 09:39 Levothyroxine Sodium (Synthroid) 25 mcg DAILY06 PO 01/24/21 06:00 01/24/21 07:26 Lisinopril (Prinivil) 40 mg DAILY PO 01/24/21 09:00 01/24/21 09:43 Cetirizine HCl (ZyrTEC) 10 mg DAILY PO 01/24/21 09:00 01/24/21 09:38 Multivitamins (Thera M Plus) 1 tab DAILY PO 01/24/21 09:00 01/24/21 09:39 Potassium Chloride (Klor-Con) 10 meq QODAY PO 01/24/21 09:00 01/24/21 09:39 Guaifenesin (Mucinex) 600 mg Q12HR PO 01/24/21 09:00 01/24/21 09:39 Pseudoephedrine HCl (Sudafed) 60 mg Q12HR PO 01/24/21 09:00 01/24/21 09:39 Brimonidine Tartrate (Alphagan) 1 drop BID OD 01/24/21 09:00 01/24/21 09:43 Timolol Maleate (Timoptic 0.5% Ophth) 1 drop BID OD 01/24/21 09:00 01/24/21 09:43 Justifications for Admission Other Justification AMISHA OROZCO III DO Jan 24, 2021 11:01
[2021-01-24 11:55] LABS: FREE T4 0.95 ng/dL (0.76-1.46); THYROID STIM HORMONE (TSH) 4.31 uIU/mL (0.358-3.74)
[2021-01-24 15:00] VITALS: BP 155/84
[2021-01-24 19:35] VITALS: BP 187/100
[2021-01-24] MEDS: METOPROLOL TART IMMED RELEASE 50 MG TABLET. PO SCH (21:45)
[2021-01-24] MEDS: LATANOPROST 0.005% OPHTH SOLUTION 2.5ML BOTTLE. OD SCH ×2 (21:45)
[2021-01-24 23:05] VITALS: BP 151/73
[2021-01-25 02:45] VITALS: BP 156/83
[2021-01-25] MEDS: LEVOTHYROXINE 25 MCG TABLET. PO SCH (06:31)
[2021-01-25 07:00] VITALS: BP 195/96
[2021-01-25 07:19] LABS: CHOLESTEROL/HDL RATIO 2.6
[2021-01-25 07:32] LABS: FREE T4 1.06 ng/dL (0.76-1.46); THYROID STIM HORMONE (TSH) 2.457 uIU/mL (0.358-3.74)
[2021-01-25] MEDS ORDERED: ASPIRIN ENTERIC COATED 81 MG TABLET.DR. PO SCH (08:00)
[2021-01-25] MEDS: CALCIUM CARBONATE 500 MG TABLET PO SCH (08:16)
[2021-01-25] MEDS: PSEUDOEPHEDRINE 30 MG TABLET. PO SCH (08:17)
[2021-01-25] MEDS: LISINOPRIL 20 MG TABLET PO SCH (08:17)
[2021-01-25] MEDS: cloNIDine HCL 0.1 MG TABLET PO PRN (08:18)
[2021-01-25] MEDS: FAMOTIDINE 20 MG TABLET. PO SCH (08:18)
[2021-01-25] MEDS: BRIMONIDINE 0.2% OPHTH SOLUTION 5ML BOTTLE. OD SCH (08:19)
[2021-01-25] MEDS: METOPROLOL TART IMMED RELEASE 50 MG TABLET. PO SCH (08:19)
[2021-01-25] MEDS: MULTIVITAMIN with MINERAL TABLET. PO SCH (08:19)
--- NOTE | 2021-01-25 08:19 | PDOC ---
[employer] PROGRESS NOTE Date of Service DOS: DATE: 01/25/21 TIME: 08:15 Chief Complaint Chief Complaint Palpitations Elevated Troponin Hypothyroid History of Present Illness History of Present Illness Patient is a 85 year old female with history of anxiety GERD hypertension sick sinus syndrome hypothyroidism status post pacemaker who presented on 01/23 to the emergency department for palpitations. Patient reported she has had palpitations that sometimes kept her up at night for the past several weeks. Intermittent shortness of breath associated with palpitation episodes. Denied chest pain. Patient called her PCP abot symptoms and was instructed to come to the ED. She arrived via EMS from her [facility]. patient was asymptomatic on arrival. EED work up found elevated troponin at .113. Cardiology was consulted and they advised admitting the patient. Patient then complained of mild weakness. 01/24/21 Patient seen in room Patient observed walking with PT//OT in the hallway Case discussed with RN and case management Patient chart reviewed 01/25/21 Patient seen and examined in room Discussed with patient the possibility of discahrge today, patient is in favor of discharge plan Case discussed with RN Patient chart reviewed Vitals/I&O Vitals/I&O: Vital Signs Date Time Temp Pulse Resp B/P (MAP) Pulse Ox O2 Delivery O2 Flow Rate FiO2 01/25/21 07:00 98.7 71 18 195/96 (129) 98 Room Air 98.7 I & O 01/24/21 01/24/21 01/25/21 15:00 23:00 07:00 Intake Total 100 ml Output Total 300 ml 650 ml Balance -300 ml -550 ml Physical Exam General: Alert, Oriented X3, Cooperative, No acute distress Heart: Regular rate (SR), Normal S1, Normal S2, No murmurs Abdomen: Soft, No tenderness Extremities: No cyanosis, No edema Skin: No breakdown, No significant lesion Labs Labs: Laboratory Tests Test 01/25/21 05:55 Triglycerides Level 60 mg/dL (0-150) Cholesterol Level 245 mg/dL (0-200) LDL Cholesterol, Calculated 138 mg/dL (0-100) VLDL Cholesterol, Calculated 12 mg/dL (0-40) Non-HDL Cholesterol Calculated 150 mg/dL (0-129) HDL Cholesterol 95 mg/dL (40-60) Cholesterol/HDL Ratio 2.6 Thyroid Stimulating Hormone (TSH) 2.457 uIU/mL (0.358-3.74) Free Thyroxine 1.06 ng/dL (0.76-1.46) Review of Systems Review of Systems: Denies chest pain, denies SOB, denies abdominal pain Assessment and Plan Assessmemt and Plan Problems Medical Problems: (1) Elevated troponin Status: Acute (2) Palpitation Status: Acute Palpitations Elevated Troponin Hypothyroid Plan 1) Hope to discharge in afternoon 2) Continue Day Habilitation Specialist 3) Continue home meds 4) DVT prophylaxis 5) Continue PT/OT until discharge Comment Review of Relevant I have reviewed the following items william (where applicable) has been applied. Medications: Current Medications Medications (Trade) Dose Ordered Sig/Delaney Route PRN Reason Start Time Stop Time Status Last Admin Dose Admin Atenolol (Tenormin) 50 mg DAILY PO 01/24/21 09:00 01/24/21 10:58 DC 01/24/21 09:39 Famotidine (Pepcid) 20 mg BID PO 01/24/21 09:00 01/24/21 21:45 Lisinopril (Prinivil) 40 mg DAILY PO 01/24/21 09:00 01/24/21 09:43 Cetirizine HCl (ZyrTEC) 10 mg DAILY PO 01/24/21 09:00 01/24/21 09:38 Multivitamins (Thera M Plus) 1 tab DAILY PO 01/24/21 09:00 01/24/21 09:39 Potassium Chloride (Klor-Con) 10 meq QODAY PO 01/24/21 09:00 01/24/21 09:39 Guaifenesin (Mucinex) 600 mg Q12HR PO 01/24/21 09:00 01/24/21 21:45 Pseudoephedrine HCl (Sudafed) 60 mg Q12HR PO 01/24/21 09:00 01/24/21 09:39 Brimonidine Tartrate (Alphagan) 1 drop BID OD 01/24/21 09:00 01/24/21 21:44 Timolol Maleate (Timoptic 0.5% Ophth) 1 drop BID OD 01/24/21 09:00 01/24/21 21:44 Clonidine HCl (Catapres Tts-1) 1 patch WEEKLY TD 01/24/21 11:00 01/24/21 11:49 Metoprolol Tartrate (Lopressor) 50 mg BID PO 01/24/21 21:00 01/24/21 21:45 Justifications for Admission Other Justification AMISHA OROZCO III DO Jan 25, 2021 08:19
[2021-01-25] MEDS: TIMOLOL 0.5% OPHTH SOLUTION 5ML BOTTLE. OD SCH (08:20)
[2021-01-25] MEDS: CETIRIZINE HCL 10 MG TABLET. PO SCH (08:21)
--- NOTE | 2021-01-25 08:37 | SNU/HH DC ---
DISCHARGE WITH HOME HEALTH DISCHARGE INFORMATION: Final Diagnosis: Problems Medical Problems: (1) Elevated troponin Status: Acute (2) Palpitation Status: Acute Condition on Discharge: Stable CODE STATUS: Code Status: Full HOME HEALTH: Face to Face: I certify this patient is under my care and that I, or a nurse practitioner or physician's ict sales assistant working with me, had a face to face encounter that meets the physician face to face encounter requirements with this patient on []. Medical Complications: Other (Debility) Senior Living For: Assess & Educate Safety RN For Eval/Treatment: Yes Physical Therapy For: Evalulation/Treatment Occupational Therapy For: Evaluation/Treatment Home Health Aide For: Self-care CHEMISTS For: Community Resources Pt Meets Homebound Status: Poor coordination w/ amb. POST DISCHARGE ORDERS: DIET AFTER DISCHARGE: Cardiac CERTIFICATION STATEMENT: Certification Statement: Certification Statement: Based on the above finding, I certify that this patient is confined to the home and needs intermittent care home care, physical therapy and/or speech therapy, or continues to need occupational therapy.~ This patient is under my care, and I have initiated the establishment of the plan of care.~ This patient will be followed by myself or a community physician who will periodically review the plan of care. Home Meds Reported Medications Multivitamin (Multivitamin) 1 Each Tablet, 1 EACH PO DAILY for SUPPLEMENT, TAB 01/23/21 Clonidine Hcl (CLONIDINE HCL) 0.1 Mg Tablet, 0.1 MG PO PRN Q4HRS PRN for HIGH BP, TAB 01/23/21 Guaifenesin/Pseudoephedrne Hcl (MUCUS RELIEF D TABLET) 1 Each Tablet, 1 EACH PO Q12HR for COUGH, TAB 01/23/21 Benzonatate (BENZONATATE) 200 Mg Capsule, 200 MG PO PRN Q8HRS PRN for COUGH, CAP 01/23/21 Alprazolam (ALPRAZOLAM) 0.25 Mg Tablet, 1 TAB PO PRN QHS PRN for INSOMNIA, #30 TAB 01/23/21 Acetaminophen (ACETAMINOPHEN) 325 Mg Tablet, 2 TAB PO PRN Q8HRS PRN for PAIN for 30 Days, #30 TAB 0 Refills 01/23/21 Potassium Chloride (POTASSIUM CHLORIDE) 8 Meq Capsule.er, 1 CAP PO QODAY for SUPPLEMENT for 30 Days, #30 CAP 0 Refills 01/23/21 Lisinopril (LISINOPRIL) 40 Mg Tablet, 1 TAB PO DAILY for LOWERS BP, #30 TAB 5 Refills 01/23/21 Calcium Carbonate (CALCIUM CARBONATE) 500 Mg Tablet, 3 TAB PO BID for STOMACH for 30 Days, #180 TAB 0 Refills 01/23/21 Atenolol (ATENOLOL) 50 Mg Tablet, 50 MG PO DAILY for HTN, TAB 01/23/21 Alendronate Sodium (ALENDRONATE SODIUM) 70 Mg Tablet, 1 TAB PO QFR for OSTEOP, #12 TAB 3 Refills 01/23/21 Latanoprost (XALATAN) 2.5 Ml Drops, 1 DROP EACHEYE QHS for GLAUCOMA, #7.5 ML 3 Refills 01/23/21 Fexofenadine Hcl (CESAR ALLERGY) 180 Mg Tablet, 1 TAB PO DAILY for allergy symptoms for 14 Days, #14 TAB 0 Refills 01/23/21 Brimonidine Tartrate/Timolol (COMBIGAN EYE DROPS) 5 Ml Drops, 5 ML OP BID for RIGHT EYE, DROP 01/23/21 [Iron] No Conflict Check 01/29/19 Levothyroxine Sodium (SYNTHROID) 25 Mcg Tablet, 25 MCG PO DAILYAC for THYROID SUPPLEMENT, #30 TAB 0 Refills 01/29/19 Famotidine (PEPCID) 20 Mg Tablet, 20 MG PO BID, TAB 01/29/19 Discontinued Reported Medications Furosemide (LASIX) 20 Mg Tablet, 20 MG PO DAILY, TAB 01/29/19 Docusate Sodium (COLACE) 100 Mg Capsule, 100 MG PO, CAP 01/29/19 Clonidine Hcl (CLONIDINE HCL) 0.1 Mg Tablet, 0.1 MG PO DAILY, TAB 01/29/19 AMISHA OROZCO III DO Jan 25, 2021 08:37
[2021-01-25] MEDS ORDERED: METO50TA6 PO (10:01)
[2021-01-25] MEDS ORDERED: CLON1PAT TD (10:03)
[2021-01-25] MEDS ORDERED: ASPI-630 PO (10:43)
--- NOTE | 2021-01-25 10:43 | NUR ---
SS following up with discharge planning. SS reviewed pt chart and discussed with pt RN. pt is currently on room air. PT/OT recommended return to [facility], ; fax [phone]. Discharge orders received for home with home healthcare. Pt has had [facility], ; fax [phone], in the past. SS phoned and faxed discharge orders and clinical to [facility] and [facility]. Pt will discharge today and return to [facility] at 1445 via [facility] transport, [id number]. Pt, pt's RN, and pt's sister notified.
[2021-01-25 11:00] VITALS: BP 153/97
[2021-01-25] MEDS ORDERED: hydroCHLOROthiazide 12.5 MG CAPSULE PO ONE (11:15)
--- NOTE | 2021-01-25 11:18 | PDOC ---
ERIC REED ROOFING PLANT SUPERVISOR 01/25/21 1117: CARDIO Progress Notes Date and Time Date of Service 01/25/2021 Time of Evaluation 1010 Subjective Subjective: No Chest Pain, No shortness of breath, No Palpitations Vitals Vitals Vital Signs Date Time Temp Pulse Resp B/P (MAP) Pulse Ox O2 Delivery O2 Flow Rate FiO2 01/25/21 08:19 71 195/96 01/25/21 08:00 Room Air 01/25/21 07:00 98.7 18 98 98.7 Weight Weight [ ] Input and Output Intake and Output Intake and Output 01/25/21 07:00 Intake Total 100 ml Output Total 950 ml Balance -850 ml Intake Oral 100 ml Output Urine Total 950 ml Laboratory Labs Laboratory Tests Test 01/25/21 05:55 Triglycerides Level 60 mg/dL (0-150) Cholesterol Level 245 mg/dL (0-200) LDL Cholesterol, Calculated 138 mg/dL (0-100) VLDL Cholesterol, Calculated 12 mg/dL (0-40) Non-HDL Cholesterol Calculated 150 mg/dL (0-129) HDL Cholesterol 95 mg/dL (40-60) Cholesterol/HDL Ratio 2.6 Thyroid Stimulating Hormone (TSH) 2.457 uIU/mL (0.358-3.74) Free Thyroxine 1.06 ng/dL (0.76-1.46) Physical Exam HEENT: Neck Supple W Full Motion Chest: Symmetric LUNGS: Clear to Auscultation Heart: S1S2, RRR (SR) Abdomen: Soft N/T Extremities: No Calf Tenderness Neurology: alert, oriented, follow commands Assessment Assessment 1. Palpitations: Likely from paroxysmal atrial flutter. Presently SR with first degree AV block 2. SSS with PPM in situ: [place]. DDDR with good battery life. <1% afib burden. 3. HTN urgency: labile episodes 4. Valvular insufficiency. MR/TR 5. Hypothyroidism: on replacement. per PCP 6. Anxiety 7. Mild troponin elevation: CP free. EKG SR with no acute changes. Possibly from uncontrolled HTN and/or arrhythmia, doubt ACS. 8. Paroxysmal atrial flutter: none further since metoprolol started 9. DLP Recommendations 1. Continue metoprolol and lisinopril. Will add HCTZ. Will need to slowly titrate off clonidine as an outpt to avoid rebound HTN and could utilize norvasc if needed. HBPM. will consider for outpt renal duplex 2. TTE today. Start on low dose statin 3. Med review noted with sudafed use. Will need discontinue. 4. ASA for now, will recheck burden as an outpt and will note need for NOAC and antiarrhythmic. 5. Anticipate DC today. Will consider for outpt MPI. Follow up on March 08 at 3PM Justicifation of Admission Dx: Justifications for Admission: Justification of Admission Dx: Yes GARY MARTIN MD 01/25/21 1716: CARDIO Progress Notes Assessment Assessment Patient seen and examined. Agree with PATIENT FLOW COORDINATOR's assessment and plan. Symptoms probably due to paroxysmal atrial flutter Presently in SR Device check showed normal function and brief episodes of AF recorded Continue metoprolol for rate control We will hold of AC for now and if she continues to have PAF we will consider antiarrhythmic as well as AC therapy BP better controlled since admission Slight trop elevation prob demand ischemia 2D echo showed normal LV systolic function with diastolic dysfunction We will consider ischemic eval as outpatient ERIC REED APRN Jan 25, 2021 11:17 GARY MARTIN MD Jan 25, 2021 17:16
[2021-01-25] MEDS ORDERED: HYDR12.575 PO (11:20)
[2021-01-25] MEDS ORDERED: ATOR20TA58 PO (11:21)
--- NOTE | 2021-01-25 13:33 | DS ---
DATE OF DISCHARGE: 01/25/2021 ADMISSION DIAGNOSES: 1. Chest pain and palpitations and elevated troponin. 2. Acute on chronic systolic and diastolic heart failure. 3. Hyponatremia. DISCHARGE DIAGNOSES: 1. Resolving atypical chest pain. 2. Resolving paroxysmal atrial fibrillation. 3. History of sick sinus syndrome with permanent pacemaker. 4. Hypertension. 5. Vascular insufficiency. 6. Mitral regurg. 7. Tricuspid regurg. 8. Hypothyroidism. 9. Anxiety. CONSULTATIONS: Cardiology. PROCEDURES: None. HOSPITAL COURSE: The patient is a pleasant elderly female who presented with chest pain and palpitations and was noted to have a bump in her troponin. We were concerned she could have coronary artery disease. She was admitted. We consulted Cardiology. They felt like she was most likely have an elevated troponin from her blood pressures in paroxysmal AFib. Over the past few days, the patient has basically returned to her baseline. This morning, I saw her and examined her. She wanted to go home. She has been working with therapy. Cardiology is okay with her leaving and considering doing an outpatient MPI study. They did start her on a low dose statin and aspirin and we continued her metoprolol and lisinopril and added hydrochlorothiazide. Basically, she is doing well. We plan to discharge. DISPOSITION: Home. ACTIVITY: As tolerated. DIET: Low sodium. MEDICATIONS: Please see the MRAD. Tylenol, alendronate 70 mg p.o. every Saturday, Xanax 0.25 q.4 hours p.r.n., aspirin 81 every day, benzonatate 200 p.r.n., timolol eyedrops, calcium carbonate, clonidine patch change weekly, Pepcid 20 p.o. b.i.d., fexofenadine 180 mg p.o. every day, guaifenesin one tablet q.12 hours, hydrochlorothiazide 12.5 every day, Xalatan eyedrops, Synthroid 225 mcg daily, lisinopril 40 every day, metoprolol 50 b.i.d., vitamins, potassium 8 mEq daily. TOTAL TIME: 32 minutes. AMISHA OROZCO DO DR: TANO/jonel JOB#: [id number] / [id number]
--- NOTE | 2021-01-25 13:58 | CARD ---
MR#: [id number] Date of Study: 01/25/2021 Ordering Physician: ERIC REED, Referring Physician: ERIC REED Tech: Lesley Welsh [facility] APPROVED REPORT EXAM: Two-dimensional and M-mode echocardiogram with Doppler and color Doppler. Other Information Quality : Good INDICATION Pacemaker RISK FACTORS Hypertension 2D DIMENSIONS RVDd2.1 (2.9-3.5cm)Left Atrium(2D)3.0 (1.6-4.0cm) IVSd2.0 (0.7-1.1cm)Aortic Root(2D)3.1 (2.0-3.7cm) LVDd3.5 (3.9-5.9cm)LVOT Diameter1.8 (1.8-2.4cm) PWd1.4 (0.7-1.1cm)LVDs2.6 (2.5-4.0cm) FS (%) 27.2 %SV28.1 ml LVEF(%)55.0 (>50%) Aortic Valve AoV Peak Ramin.142.1cm/sAoV VTI22.6cm AO Peak GR.8.1mmHgLVOT Peak Ramin.88.9cm/s AO Mean GR.4mmHgAVA (VMAX)1.60cm2 ROSA (VTI)1.11ne7DV P 1/2 [id number] Mitral Valve MV E Ulufrlpt28.1cm/sMV DECEL LSFL691zw MV A Tjjdntzp74.9cm/sE/A Ratio2.6 Tricuspid Valve TR P. Lxfiznuj459jm/sRAP [id number] TR Peak Gr.13nlHrPEZU58ssGv LEFT VENTRICLE The left ventricle is normal size. There is moderate concentric left ventricular hypertrophy. Left ve ntricle systolic function is normal. The Ejection Fraction is 50-55%. There is normal LV segmental wa ll motion. Transmitral Doppler flow pattern is Grade III-reversible restrictive diastolic dysfunction . RIGHT VENTRICLE The right ventricle cavity is small. The right ventricular systolic function is normal. There are dev ice leads in the right ventricle and atrium. ATRIA The left atrium size is normal. The right atrium size is normal. The interatrial septum is intact wit h no evidence for an atrial septal defect or patent foramen ovale as noted on 2-D or Doppler imaging. AORTIC VALVE The aortic valve is moderately thickened but opens well. Doppler and Color Flow revealed mild aortic regurgitation. There is no significant aortic valvular stenosis. MITRAL VALVE The mitral valve is calcified but opens well. There is no evidence of mitral valve prolapse. There is no mitral valve stenosis. Doppler and Color-flow revealed trace mitral regurgitation. TRICUSPID VALVE The tricuspid valve is normal in structure and function. Doppler and Color Flow revealed moderate tri cuspid regurgitation. There is moderate pulmonary hypertension. The PA pressure was estimated at 52 m mHg. There is no tricuspid valve stenosis. PULMONIC VALVE The pulmonic valve is not well visualized. Doppler and Color Flow revealed mild to moderate pulmonic valvular regurgitation. There is no pulmonic valvular stenosis. GREAT VESSELS The aortic root is normal in size. The ascending aorta is normal in size. The IVC is normal in size a nd collapses >50% with inspiration. PERICARDIAL EFFUSION There is no evidence of significant pericardial effusion. Critical Notification Critical Value: No <Conclusion> The left ventricle is normal size. Left ventricle systolic function is normal. The Ejection Fraction is 50-55%. There is moderate concentric left ventricular hypertrophy. Transmitral Doppler flow pattern is Grade III-reversible restrictive diastolic dysfunction. Doppler and Color Flow revealed mild aortic regurgitation. There is no significant aortic valvular stenosis. Doppler and Color-flow revealed trace mitral regurgitation. Doppler and Color Flow revealed moderate tricuspid regurgitation. There is moderate pulmonary hypertension. The PA pressure was estimated at 52 mmHg. Signed by : Marc Dolan MD Electronically Approved : 01/25/2021 13:57:54
[2021-01-25 15:00] VITALS: BP 165/96
--- NOTE | 2021-01-25 15:49 | NUR ---
Discharge Note: MERLOS,DEVON [address] Discharge instructions and discharge home medications reviewed with Other facility and a copy given. All questions have been answered and understanding verbalized. The following instructions and handouts were given: Augmentin, clopidogrel Patient discharged to [facility] with transport via wheelchair. Addendum: 01/25/21 at 1616 by CHRISTINA ROGERS RN RN Handouts given were metoprolol, and atorvastatin with report and discharge to [facility].
[2021-01-25] MEDS ORDERED: ATORVASTATIN CALCIUM 10 MG TABLET. PO SCH (21:00)
[2021-01-26] MEDS ORDERED: FAMOTIDINE 20 MG TABLET. PO SCH (09:00)
[2021-01-26] MEDS ORDERED: hydroCHLOROthiazide 12.5 MG CAPSULE PO SCH (09:00)
[2021-01-27] MEDS ORDERED: NON FORMULARY ITEM (Alendronate Sodium 1 TAB) PO SCH (16:00)
== END 2021-01-25 16:00 | disposition home health service (06) | DRG 308 ==
LOC: ER 11:22 → 2 NORTH 15:41 → OBSVTOIN 01-24 18:43
PROVIDERS: ADMIT Internal Medicine; ATTEND Internal Medicine
DX: I48.0 Paroxysmal atrial fibrillation (principal); I50.43 Acute on chronic combined systolic (congestive) and diastolic (congestive) heart failure; E87.1 Hypo-osmolality and hyponatremia; E03.9 Hypothyroidism, unspecified; R07.89 Other chest pain; I48.92 Unspecified atrial flutter; F41.9 Anxiety disorder, unspecified; I08.1 Rheumatic disorders of both mitral and tricuspid valves; I11.0 Hypertensive heart disease with heart failure; I16.0 Hypertensive urgency; I44.0 Atrioventricular block, first degree; I73.9 Peripheral vascular disease, unspecified; K21.9 Gastro-esophageal reflux disease without esophagitis; M19.90 Unspecified osteoarthritis, unspecified site; M81.0 Age-related osteoporosis without current pathological fracture; Z83.3 Family history of diabetes mellitus; Z90.711 Acquired absence of uterus with remaining cervical stump; Z95.0 Presence of cardiac pacemaker; Z88.1 Allergy status to other antibiotic agents; Z88.8 Allergy status to other drugs, medicaments and biological substances
CPT/HCPCS: 36415; 71045; 80053; 80061; 81001; 83735; 83880; 84439; 84443; 84484; 85025; 93005; 93306; 99285; G0378; G0379; 97116-GP; 97535-GO

== ENCOUNTER → 2021-02-24 | Outpatient (CLI) | payer OTHER, MEDICAID ==
[2021-01-25 15:00] VITALS: BP 165/96
[~2021-02-24] MED LIST changes: +ACET325T21 PO; +ALEN70TA71 PO; +ALPR0.254 PO; +ASPI-630 PO; +ATEN50TA PO; +ATOR20TA58 PO; +BENZ200C47 PO; +BRIM5DRO2 OP; +CALC500T31 PO; +CLON1PAT TD; +FEXO180T81 PO; +GUAI1TAB15 PO; +HYDR12.575 PO; +LATA2.5D2 EACHEYE; +LISI-130 PO; +METO50TA6 PO; +MULT-766 PO; +POTA8CAP19 PO; +REGADENOSON 0.4 MG/5 ML DISP.SYRIN. IV ONE
--- NOTE | 2021-02-24 14:12 | RAD ---
MR#: [id number] Date of Study: 02/24/2021 Ordering Physician: GARY MARTIN, Referring Physician: PEDRO CUNHA Tech: RADHA Prado APPROVED REPORT Test Type: Pharmacological Stress Nurse/Tech: Cortes Haynes RN Test Indications: elevated troponin, palpitations Cardiac History: CAD, HTN, PPM Medications: See Electronic Medical Record Medical History: See Electronic Medical Record Resting ECG: SR prolonged VA interval Resting Heart Rate: 89 bpm Resting Blood Pressure: 200/113mmHg Pretest Chest Pain: None Nurse/Tech Notes Lungs CTA, S1S2. Pt states she took her blood pressure medications this am and her blood pressure was 120/60 at home. She states she is always elevated at the hospital. Consent: The procedure was explained to the patient in lay terms. Informed consent was witnessed. Westley zaragoza was entered into [employer]. History and Stress Test performed by RADHA Prado Pharm. Details Pharmacologic stress testing was performed using 0.4mg per 5ml of regadenoson given intravenously ove r 7-10 seconds. Stress Symptoms No chest pain or symptoms. POST EXERCISE Reason for Termination: Infusion complete Max HR: 108 bpm Max Blood Pressure: 201/113mmHg Blood Pressure response to exercise: Normal blood pressure response during stress. Heart Rate response to exercise: normal response Chest Pain: No. Arrhythmia: Yes. PVC INTERPRETATION Stress EKG Conclusion: The resting EKG shows a sinus rhythm with slight nonspecific T wave changes. The stress EKG shows no significant changes from baseline. No EKG evidence of stress-induced ischemia. Imaging Protocol IMAGE PROTOCOL: Rest Tc-99m/stress Tc-99m 1 day Rest: Stress: Viability: Radiopharm.Tc99m [id number] Sestamibi Xqsm29vLk 30mCi Duration 15min. 13min. Img Date 02/24/2021 02/24/2021 Inj-Img Yczt13qsc. 60min. Rest Admin Site:IV - Right AntecubitalAdministrator:RADHA Prado Stress Admin Site: IV Right AntecubitalAdministrator: KATHLEEN Xiong, ARRT (R)(N) STRESS DATA End Diast. Vol.79.0mlLVEDV index BSA52.0ml End Syst. Vol.28.0mlLVESV index BSA18.0ml Myocardial Tkbg092.0gEject. Rfovlstm61.0% Stress Scores Regional WT3.00Summed WT30.00 Regional WM0.00Summed WM1.00 LV Perfusion The stress scans show no significant defects. The rest scans show no significant defects. Nuclear imaging shows no reversible ischemia or infarct. Wall Motion Left ventricular systolic function is normal with no regional wall motion abnormalities and an ejecti on fraction of 65%. LV Perf. Quant 17 Seg. SSS2.00 17 Seg. SRS3.00 17 Seg. SDS0.00 Stress Defect Extent (% LAD)2.50Rest Defect Extent (% LAD)3.10Rev. Defect Extent (% LAD)0.00 Stress Defect Extent (% LCX) 2.50Rest Defect Extent (% LCX)8.80Rev. Defect Extent (% LCX)0.00 Stress Defect Extent (% RCA)0.00Rest Defect Extent (% RCA)0.00Rev. Defect Extent (% RCA)0.00 Stress Defect Extent (% ABDOULAYE)2.80Rest Defect Extent (% ABDOULAYE)5.20Rev. Defect Extent (% BADOULAYE)0.00 Conclusion 1. No EKG evidence of stress-induced ischemia. 2. Nuclear imaging shows no reversible ischemia or infarct. 3. Normal left ventricular systolic function with an ejection fraction of 65%. 4. Low risk Lexiscan nuclear stress test. Signed by : Marc Dolan MD Electronically Approved : 02/24/2021 14:12:28
== END ==
LOC: NM 08:48
PROVIDERS: ATTEND Internal Medicine Cardiovascular Disease
DX: R79.89 Other specified abnormal findings of blood chemistry (principal); I10 Essential (primary) hypertension; I25.10 Atherosclerotic heart disease of native coronary artery without angina pectoris
CPT/HCPCS: 78452; 93017; A9500; J2785

== ENCOUNTER 2022-01-28 09:43 | Observation (INO) | payer OTHER, MEDICAID ==
[~2022-01-28] VITALS: Ht 157.5 cm; Wt 46.4 kg
[~2022-01-28 09:43] MED LIST changes: -REGADENOSON 0.4 MG/5 ML DISP.SYRIN. IV ONE
--- NOTE | 2022-01-28 09:47 | PHYS DOC ---
Past Medical History Past Medical History: Anemia, Anxiety, GERD, Hypertension, Hypothyroid Additional Past Medical Histor: SSS, OSTEOARTHRITIS, PVD, VIT D DEFICIENCY Past Surgical History: Pacemaker Smoking Status: Never Smoker Alcohol Use: None General Adult EDM: Chief Complaint: SYNCOPE HPI: HPI: Patient is a 86 year old male who presents by EMS from her assisted living facility for report of syncope. She was sitting at the breakfast table, eating and she slumped over and lost consciousness. She was gently helped to the ground by the staff. She awakened on her own after a few seconds. She reportedly was hypotensive, a clonidine patch was removed by EMS after they arrived. Her blood pressure quickly improved. No reported tonic-clonic activity, no reported tongue biting, incontinence. No reported head injury or fall. The patient denies any complaints at all. She does not recall the event. She denies headache, dizziness, vision changes, neck pain, back pain, chest pain, dyspnea, palpitations, abdominal pain, nausea, vomiting. She denies numbness or tingling or motor weakness. No previous known history of syncope. She does have a history of pacemaker. She reports that she had been feeling well earlier today. She got herself dressed in order to go to [place] with her sister, she denies any recent ill contacts. She reports the medication changes that she has had is a dose adjustment in her hypothyroid medication. Review of Systems: Review of Systems: Constitutional: Denies fever or chills. [] Eyes: Denies change in visual acuity. [] HENT: Denies nasal congestion or sore throat. [] Respiratory: Denies cough or shortness of breath. [] Cardiovascular: Denies chest pain or edema. [] GI: Denies abdominal pain, nausea, vomiting, or diarrhea : Denies urinary symptoms. Musculoskeletal: Denies back pain or joint pain. [] Integument: Denies rash. [] Neurologic: Denies headache, focal weakness or sensory changes. Denies dizziness or vertigo. Syncope reported. No head injury reported. She denies numbness or tingling or paralysis. Psychiatric: Denies depression or anxiety. [] Heart Score: C/O Chest Pain: No Risk Factors: Risk Factors: DM, Current or recent (<one month) smoker, HTN, HLP, family history of CAD, obesity. Risk Scores: Score 0 - 3: 2.5% MACE over next 6 weeks - Discharge Home Score 4 - 6: 20.3% MACE over next 6 weeks - Admit for Clinical Observation Score 7 - 10: 72.7% MACE over next 6 weeks - Early Invasive Strategies Allergies: Allergies: Allergies Coded Allergies Type Severity Reaction Last Updated Verified amoxicillin Allergy Intermediate 01/29/19 No sulfamethoxazole Allergy Intermediate 01/29/19 No trimethoprim Allergy Intermediate 01/29/19 No Physical Exam: PE: Constitutional: Well developed, well nourished, no acute distress, non-toxic appearance. [] HENT: Normocephalic, atraumatic, oropharynx is patent and clear, mucous membranes are moist. No evidence of oral or facial trauma. External ears are normal bilaterally. Nares are patent and clear without rhinorrhea or epistaxis. TMs are clear bilaterally Eyes: PERRL, EOMI, conjunctiva normal, no discharge. No nystagmus. No evidence of ocular trauma, swelling ecchymoses or erythema Neck: Normal range of motion, no tenderness, supple, no stridor. Midline tenderness or step-offs. No JVD. No meningismus. Cardiovascular:Heart rate regular rhythm, radial and +2 posterior tibial pulses bilaterally. Lungs & Thorax: Bilateral breath sounds clear to auscultation [] Abdomen: Abdomen is soft, nondistended, nontender to palpation. Normal bowel sounds. No palpable masses organomegaly. No CVA tenderness. No flank abdominal ecchymoses. No palpable pulsatile mass. Skin: Warm, dry, no erythema, no rash. No abrasions or contusions, no open wounds Back: No tenderness, no CVA tenderness. No evidence of trauma, no midline tenderness or step-offs. No deformity. Full range of motion. Extremities: No tenderness, no cyanosis, no clubbing, ROM intact, no edema. Calf tenderness. Pelvis is stable. Neurologic: She is awake, alert, oriented x3, cranial nerves II through XII grossly intact, 5 out of 5 motor strength all 4 extremities, sensation is grossly intact, no pronator drift or dysmetria, no limb ataxia, speech is clear and fluent. Psychologic: Affect normal, judgement normal, mood normal. She is pleasant and cooperative. EKG: EKG: EKG is interpreted at 1023 Rhythm is sinus Rate is 82 bpm [place] is normal low voltage No STEMI Radiology/Procedures: Radiology/Procedures: IMAGING REPORT Signed PATIENT: DEVON MERLOS V ACCOUNT: [id number] : 1935 LOCATION: ER AGE: 86 SEX: F EXAM STATUS: PRE ER ORD. PHYSICIAN: MANOHAR THOMPSON DO REASON: syncope PROCEDURE: CT HEAD WO CONTRAST EXAM: Head CT without contrast. HISTORY: Syncope. TECHNIQUE: Computed tomographic images of the head were obtained without contrast. *One or more of the following individualized dose reduction techniques were utilized for this examination: 1. Automated exposure control. 2. Adjustment of the mA and/or kV according to patient size. 3. Use of iterative reconstruction technique. COMPARISON: None. FINDINGS: There is no acute or subacute extra-axial or intraparenchymal hemorrhage. There is no mass effect or midline shift. There is no hydrocephalus. There are areas of decreased attenuation within the cerebral white matter, nonspecific and likely related to chronic small vessel disease. There is cerebral volume loss. There is a focus of encephalomalacia within the right cerebellum due to chronic infarction. The visualized portions of the orbits, paranasal sinuses and mastoid air cells are unremarkable. No suspicious calvarial lesion is seen. IMPRESSION: 1. No acute intracranial finding. Note is made that MRI is more sensitive for acute infarction. 2. Bilateral cerebral white matter changes, likely due to chronic small vessel disease. 3. Cerebral volume loss. 4. 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 Electronically signed by: Rivka Torres MD (01/28/2022 10:23 AM) [facility] DICTATED and SIGNED BY: RIVKA TORRES MD DATE: 01/28/22 [id number] IMAGING REPORT Signed PATIENT: DEVON MERLOS V ACCOUNT: [id number] : 1935 LOCATION: ER AGE: 86 SEX: F EXAM STATUS: PRE ER ORD. PHYSICIAN: MANOHAR THOMPSON DO REASON: syncope PROCEDURE: PORTABLE CHEST 1V EXAM: Chest, single view. HISTORY: Syncope. COMPARISON: 01/23/2021 FINDINGS: A frontal view of the chest is obtained. There is no infiltrate, pleural effusion or pneumothorax. There is stable cardiomegaly and a cardiac pacemaker. IMPRESSION: Cardiomegaly. Electronically signed by: Rivka Torres MD (01/28/2022 10:18 AM) [facility] DICTATED and SIGNED BY: RIVKA TORRES MD DATE: 01/28/22 [id number] Course & Med Decision Making: Course & Med Decision Making Pertinent Labs and Imaging studies reviewed. (See chart for details) The findings, differential diagnosis and plan of care discussed with the patient. She continues to deny any chest pain. Her troponin is elevated. No acute ischemia on EKG. Oral aspirin is given. I have discussed my recommendation for hospitalization and admission, she is comfortable with this. She is accepted for admission by Dr. Gonzalez. Petr Disclaimer: Petr Disclaimer: This electronic medical record was generated, in whole or in part, using a voice recognition dictation system. Departure Departure Impression: Primary Impression: Syncope Qualified Codes: R55 - Syncope and collapse Additional Impression: Elevated troponin Disposition: ADMITTED INPATIENT Admitting Physician: CLARICE (Dr. Gonzalez) Condition: STABLE Referrals: SATISH LEON MD (PCP) MANOHAR THOMPSON DO Jan 28, 2022 09:47
--- NOTE | 2022-01-28 10:21 | RAD ---
EXAM: Chest, single view. HISTORY: Syncope. COMPARISON: 01/23/2021 FINDINGS: A frontal view of the chest is obtained. There is no infiltrate, pleural effusion or pneumo thorax. There is stable cardiomegaly and a cardiac pacemaker. IMPRESSION: Cardiomegaly. Electronically signed by: Rivka Garcia MD (01/28/2022 10:18 AM) [facility]
--- NOTE | 2022-01-28 10:25 | RAD ---
EXAM: Head CT without contrast. HISTORY: Syncope. TECHNIQUE: Computed tomographic images of the head were obtained without contrast. *One or more of the following individualized dose reduction techniques were utilized for this examina tion: 1. Automated exposure control. 2. Adjustment of the mA and/or kV according to patient size. 3. Use of iterative reconstruction technique. COMPARISON: None. FINDINGS: There is no acute or subacute extra-axial or intraparenchymal hemorrhage. There is no mass effect or midline shift. There is no hydrocephalus. There are areas of decreased attenuation within the cerebral white matter, nonspecific and likely rel ated to chronic small vessel disease. There is cerebral volume loss. There is a focus of encephalomal acia within the right cerebellum due to chronic infarction. The visualized portions of the orbits, paranasal sinuses and mastoid air cells are unremarkable. No s uspicious calvarial lesion is seen. IMPRESSION: 1. No acute intracranial finding. Note is made that MRI is more sensitive for acute infarction. 2. Bilateral cerebral white matter changes, likely due to chronic small vessel disease. 3. Cerebral volume loss. 4. 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 Electronically signed by: Rivka Garcia MD (01/28/2022 10:23 AM) [facility]
[2022-01-28 10:45] LABS: CALCIUM 8.8 mg/dL (8.5-10.1); CREATININE 1.1 mg/dL (0.6-1.0); GFR 56.7
[2022-01-28 10:52] LABS: ALBUMIN 3.1 g/dL (3.4-5.0); ALBUMIN/GLOBULIN RATIO 0.7 (1.0-1.7); MAGNESIUM 1.6 mg/dL (1.8-2.4); TOTAL BILIRUBIN 0.6 mg/dL (0.2-1.0); TOTAL PROTEIN 7.6 g/dL (6.4-8.2)
[2022-01-28 11:02] LABS: BASO % 0 % (0-3); EOS % 0 % (0-3); HEMATOCRIT 29.2 % (36.0-47.0); HEMOGLOBIN 9.5 g/dL (12.0-15.5); LYMPH # 0.3 x10^3/uL (1.0-4.8); LYMPH % 6 % (24-48); MEAN CORPUSCULAR HEMOGLOBIN 26 pg (25-35); MEAN CORPUSCULAR HGB CONC 33 g/dL (31-37); MEAN CORPUSCULAR VOLUME 80 fL (79-100); MONO # 0.1 x10^3/uL (0.0-1.1); MONO % 2 % (0-9); NEUT # 5.3 x10^3/uL (1.8-7.7); NEUT % 92 % (31-73); PLATELET COUNT 307 x10^3/uL (140-400); RED BLOOD COUNT 3.63 x10^6/uL (3.50-5.40); RED CELL DISTRIBUTION WIDTH 15.6 % (11.5-14.5); WHITE BLOOD COUNT 5.7 x10^3/uL (4.0-11.0)
[2022-01-28] MEDS ORDERED: ASPIRIN CHEWABLE 81 MG TABLET. PO ONE (11:15)
[2022-01-28 12:50] VITALS: BP 161/88
[2022-01-28] MEDS ORDERED: CHOL200024 PO (13:02)
[2022-01-28] MEDS ORDERED: LEVO50TA PO (13:02)
[2022-01-28 13:10] LABS: % BASOS 1 % (0-3); % LYMPHS 6 % (24-48); % MONOS 3 % (0-10); % SEGS 90 % (35-66); PLT ESTIMATE ADEQUATE (ADEQUATE)
[2022-01-28] MEDS ORDERED: CALCIUM CARBONATE 500 MG TAB.CHEW PO PRN (13:45)
[2022-01-28] MEDS ORDERED: cloNIDine HCL 0.1 MG TABLET PO PRN (13:45)
[2022-01-28] MEDS ORDERED: ELECTROLYTE (NON-ICU) PROTOCOL. MC PRN (13:45)
[2022-01-28] MEDS ORDERED: ONDANSETRON PF 4 MG/2 ML VIAL. IVP PRN (13:45)
[2022-01-28] MEDS ORDERED: oxyCODONE/APAP 5/325 1 TAB TABLET PO PRN ×2 (13:45)
[2022-01-28] MEDS ORDERED: ALPRAZolam 0.25 MG TABLET PO PRN (13:45)
[2022-01-28] MEDS ORDERED: ACETAMINOPHEN 325 MG TABLET. PO PRN (13:45)
[2022-01-28] MEDS ORDERED: hydroCHLOROthiazide 12.5 MG CAPSULE PO SCH (14:00)
[2022-01-28] MEDS: HEPARIN for SUB-Q USE 5,000 UNIT/ML VIAL. SQ SCH ×2 (14:53→21:19)
[2022-01-28 15:44] VITALS: BP 120/72
--- NOTE | 2022-01-28 17:16 | EKG ---
[facility] [address] [place] [address] Test Date: 2022-01-28 Test Time: 10:21:48 Pat Name: DEVON MERLOS Department: Room: Gender: F Archeology Faculty Member: : 1935 Requested By: MANOHAR THOMPSON Order Number: [id number] Reading MD: Measurements Intervals [place] Rate: 82 P: 67 [place]: 228 QRS: 21 QRSD: 88 T: 33 QT: 402 QTc: 473 Interpretive Statements SINUS RHYTHM PROLONGED [place] INTERVAL LOW LIMB LEAD VOLTAGE PROLONGED QT ABNORMAL ECG RI6.02 No previous ECG available for comparison
[2022-01-28 19:13] VITALS: BP 140/76
--- NOTE | 2022-01-28 19:30 | NUR ---
Assessment completed vss poc explained pt denied pain at this time. Spoke with pt Sister Arabella will resume care and continue to monitor pt.
[2022-01-28] MEDS ORDERED: ATORVASTATIN CALCIUM 10 MG TABLET. PO SCH (21:00)
[2022-01-28] MEDS ORDERED: FAMOTIDINE 20 MG TABLET. PO SCH (21:00)
[2022-01-28] MEDS ORDERED: LATANOPROST 0.005% OPHTH SOLUTION 2.5ML BOTTLE. OU SCH (21:00)
[2022-01-28] MEDS: SENNOSIDES/DOCUSATE 8.6/50MG TABLET. PO SCH (21:06)
[2022-01-28] MEDS: METOPROLOL TART IMMED RELEASE 50 MG TABLET. PO SCH (21:07)
[2022-01-28] MEDS: TIMOLOL 0.25% OPHTH SOLUTION 5ML BOTTLE. OU SCH (21:07)
[2022-01-28] MEDS: BRIMONIDINE 0.2% OPHTH SOLUTION 5ML BOTTLE. OU SCH (21:07)
[2022-01-28 22:55] VITALS: BP 128/68
[2022-01-29 02:41] VITALS: BP 142/86
[2022-01-29] MEDS: HEPARIN for SUB-Q USE 5,000 UNIT/ML VIAL. SQ SCH ×2 (05:44→12:33)
[2022-01-29] MEDS ORDERED: LEVOTHYROXINE 50 MCG TABLET PO SCH (06:00)
[2022-01-29 06:29] VITALS: BP 158/78
[2022-01-29] MEDS: SENNOSIDES/DOCUSATE 8.6/50MG TABLET. PO SCH (08:01)
[2022-01-29] MEDS: METOPROLOL TART IMMED RELEASE 50 MG TABLET. PO SCH (08:01)
[2022-01-29] MEDS: BRIMONIDINE 0.2% OPHTH SOLUTION 5ML BOTTLE. OU SCH (08:02)
[2022-01-29] MEDS: TIMOLOL 0.25% OPHTH SOLUTION 5ML BOTTLE. OU SCH (08:02)
--- NOTE | 2022-01-29 08:12 | PDOC1 ---
History and Physical Date of Service: DOS: Late entry from January 28 Chief Complaint: Chief Complain: Syncope History of Present Illness: HPI: Report from emergency room below Patient is a 86 year old male who presents by EMS from her assisted living facility for report of syncope. She was sitting at the breakfast table, eating and she slumped over and lost consciousness. She was gently helped to the ground by the staff. She awakened on her own after a few seconds. She reportedly was hypotensive, a clonidine patch was removed by EMS after they arrived. Her blood pressure quickly improved. No reported tonic-clonic activity, no reported tongue biting, incontinence. No reported head injury or fall. The patient denies any complaints at all. She does not recall the event. She denies headache, dizziness, vision changes, neck pain, back pain, chest pain, dyspnea, palpitations, abdominal pain, nausea, vomiting. She denies numbness or tingling or motor weakness. No previous known history of syncope. She does have a history of pacemaker. She reports that she had been feeling well earlier today. She got herself dressed in order to go to [place] with her sister, she denies any recent ill contacts. She reports the medication changes that she has had is a dose adjustment in her hypothyroid medication. Past Medical/Surgical History: PMH/PSH: Past Medical History: Anemia, Anxiety, GERD, Hypertension, Hypothyroid Additional Past Medical Histor: SSS, OSTEOARTHRITIS, PVD, VIT D DEFICIENCY Past Surgical History: Pacemaker Smoking Status: Never Smoker Alcohol Use: None Allergies: Allergies: Coded Allergies: amoxicillin (Unverified Allergy, Intermediate, 01/29/19) sulfamethoxazole (Unverified Allergy, Intermediate, 01/29/19) trimethoprim (Unverified Allergy, Intermediate, 01/29/19) Family History: Family History: Hypertension Current Medications: Current Medications Current Medications Aspirin (Aspirin Chewable) 324 mg 1X ONCE PO Last administered on 01/28/22at 12:21; Start 01/28/22 at 11:15; Stop 01/28/22 at 11:16; Status DC Alprazolam (Xanax) 0.25 mg PRN QHS PRN PO INSOMNIA; Start 01/28/22 at 13:45 Atorvastatin Calcium (Lipitor) 10 mg QHS PO Last administered on 01/28/22at 21:07; Start 01/28/22 at 21:00 Clonidine HCl (Catapres) 0.1 mg PRN Q4HRS PRN PO HIGH BP; Start 01/28/22 at 13:45 Famotidine (Pepcid) 20 mg QHS PO Last administered on 01/28/22at 21:07; Start 01/28/22 at 21:00 Hydrochlorothiazide (Microzide) 12.5 mg DAILY PO ; Start 01/28/22 at 14:00; Status Cancel Latanoprost (Xalatan) 1 drop QHS OU Last administered on 01/28/22at 21:07; Start 01/28/22 at 21:00 Levothyroxine Sodium (Synthroid) 50 mcg DAILY06 PO Last administered on 01/29/22at 05:43; Start 01/29/22 at 06:00 Lisinopril (Prinivil) 40 mg DAILY PO Last administered on 01/29/22at 08:01; Start 01/29/22 at 09:00 Metoprolol Tartrate (Lopressor) 50 mg BID PO Last administered on 01/29/22at 08:01; Start 01/28/22 at 21:00 Brimonidine Tartrate (Alphagan) 1 drop BID OU Last administered on 01/29/22at 08:02; Start 01/28/22 at 21:00 Cetirizine HCl (ZyrTEC) 10 mg DAILY PO Last administered on 01/29/22at 08:01; Start 01/29/22 at 09:00 Ondansetron HCl (Zofran) 4 mg PRN Q6HRS PRN IVP NAUSEA/VOMITING; Start 01/28/22 at 13:45 Calcium Carbonate/ Glycine (Tums) 500 mg PRN Q3HRS PRN PO UPSET STOMACH; Start 01/28/22 at 13:45 Info (Non-Icu Electrolyte Protocol) 1 ea PRN DAILY PRN MC SEE COMMENTS; Start 01/28/22 at 13:45 Oxycodone/ Acetaminophen (Percocet 5/325) 1 tab PRN Q4HRS PRN PO MILD PAIN, 1ST CHOICE; Start 01/28/22 at 13:45 Oxycodone/ Acetaminophen (Percocet 5/325) 2 tab PRN Q4HRS PRN PO MODERATE PAIN, SEVERE PAIN; Start 01/28/22 at 13:45 Acetaminophen (Tylenol) 650 mg PRN Q6HRS PRN PO Headaches, Temp > 101.5F; Start 01/28/22 at 13:45 Senna/Docusate Sodium (Senna Plus) 1 tab BID PO Last administered on 01/29/22at 08:01; Start 01/28/22 at 21:00 Heparin Sodium (Porcine) (Heparin Sodium) 5,000 unit Q8HRS SQ Last administered on 01/29/22at 05:44; Start 01/28/22 at 14:00 Hydrochlorothiazide (Microzide) 12.5 mg DAILY PO Last administered on 01/29/22at 08:01; Start 01/29/22 at 09:00 Timolol Maleate (Timoptic 0.25% Oph) 1 drop BID OU Last administered on 01/29/22at 08:02; Start 01/28/22 at 21:00 Active Scripts Active Reported D3 Dots (Cholecalciferol (Vitamin D3)) 50 Mcg Tablet 50 Mcg PO DAILY Synthroid (Levothyroxine Sodium) 50 Mcg Tablet 1 Tab PO DAILY Atorvastatin Calcium 20 Mg Tablet 10 Mg PO HS Hydrochlorothiazide Capsule (Hydrochlorothiazide) 12.5 Mg Capsule 12.5 Mg PO DAILY Clonidine Tts-1 (Clonidine) 1 Each Patch.tdwk 1 Patch TD WEEKLY Metoprolol Tartrate 50 Mg Tablet 50 Mg PO BID Multivitamin 1 Each Tablet 1 Each PO DAILY Clonidine Hcl 0.1 Mg Tablet 0.1 Mg PO PRN Q4HRS PRN Mucus Relief D Tablet (Guaifenesin/Pseudoephedrne Hcl) 1 Each Tablet 1 Each PO Q12HR Benzonatate 200 Mg Capsule 200 Mg PO PRN Q8HRS PRN Alprazolam 0.25 Mg Tablet 1 Tab PO PRN QHS PRN Acetaminophen 325 Mg Tablet 2 Tab PO PRN Q8HRS PRN 30 Days Potassium Chloride 8 Meq Capsule.er 1 Cap PO QODAY 30 Days Lisinopril 40 Mg Tablet 1 Tab PO DAILY Calcium Carbonate 500 Mg Tablet 3 Tab PO BID 30 Days Alendronate Sodium 70 Mg Tablet 1 Tab PO QFR Xalatan (Latanoprost) 2.5 Ml Drops 1 Drop EACHEYE QHS [facility] Allergy (Fexofenadine Hcl) 180 Mg Tablet 1 Tab PO DAILY 14 Days Combigan Eye Drops (Brimonidine Tartrate/Timolol) 5 Ml Drops 5 Ml OP BID [Iron] Pepcid (Famotidine) 20 Mg Tablet 20 Mg PO BID ROS: Review of Systems Review of System Unless noted in HPI 14 point review of systems was Physical Exam: Vital Signs: Vital Signs Date Time Temp Pulse Resp B/P (MAP) Pulse Ox O2 Delivery O2 Flow Rate FiO2 01/29/22 08:01 77 158/78 01/29/22 06:29 97.8 16 100 Room Air 97.8 Physcial Exam: GEN: No apparent distress. Alert and oriented HEENT: Normal cephalic, atraumatic, external auditory canals are patent EYES: Extraocular muscles are intact, pupil are equally round and reactive to light and accommodation MUSCULOSKELETAL: Well developed , well nourished, good range of motion ENDOCRINE: No thyromegaly was palpated LYMPHATICS: No cervical chain or axillary nodes were noted HEMATOPOIETIC: No bruising NECK: Supple, no JVD, no thyromegaly was noted LUNGS: Clear to auscultation in all lung jaquez without rhonchi or wheezing HEART: RRR, S!, S2 present. Peripheral pulses intact, no obvious murmurs noted ABDOMEN: Soft, nontender. Positive bowel sounds, no organomegaly, normal bowel sounds EXTREMITIES: Without clubbing, cyanosis, or edema. Pedal pulses intact. N egative Homans sign NEUROLOGIC: Normal speech and tone. A&O x 3, moves all extremities, no obvious focal deficits PSYCHIATRIC: Normal affect, normal mood. Stable SKIN: No ulcerations or rashes, good skin turgor, no jaundice VASCULAR: Good capillary refill, neurovascular bundle appears to be intact Labs: Labs: Laboratory Tests Test 01/28/22 10:30 01/28/22 15:03 White Blood Count 5.7 x10^3/uL (4.0-11.0) Red Blood Count 3.63 x10^6/uL (3.50-5.40) Hemoglobin 9.5 g/dL (12.0-15.5) Hematocrit 29.2 % (36.0-47.0) Mean Corpuscular Volume 80 fL (79-100) Mean Corpuscular Hemoglobin 26 pg (25-35) Mean Corpuscular Hemoglobin Concent 33 g/dL (31-37) Red Cell Distribution Width 15.6 % (11.5-14.5) Platelet Count 307 x10^3/uL (140-400) Neutrophils (%) (Auto) 92 % (31-73) Lymphocytes (%) (Auto) 6 % (24-48) Monocytes (%) (Auto) 2 % (0-9) Eosinophils (%) (Auto) 0 % (0-3) Basophils (%) (Auto) 0 % (0-3) Neutrophils # (Auto) 5.3 x10^3/uL (1.8-7.7) Lymphocytes # (Auto) 0.3 x10^3/uL (1.0-4.8) Monocytes # (Auto) 0.1 x10^3/uL (0.0-1.1) Eosinophils # (Auto) 0.0 x10^3/uL (0.0-0.7) Basophils # (Auto) 0.0 x10^3/uL (0.0-0.2) Segmented Neutrophils % 90 % (35-66) Lymphocytes % 6 % (24-48) Monocytes % 3 % (0-10) Basophils % 1 % (0-3) Platelet Estimate Adequate (ADEQUATE) Sodium Level 135 mmol/L (136-145) Potassium Level 4.0 mmol/L (3.5-5.1) Chloride Level 96 mmol/L (98-107) Carbon Dioxide Level 26 mmol/L (21-32) Anion Gap 13 (6-14) Blood Urea Nitrogen 26 mg/dL (7-20) Creatinine 1.1 mg/dL (0.6-1.0) Estimated GFR (Cockcroft-Gault) 56.7 BUN/Creatinine Ratio 24 (6-20) Glucose Level 145 mg/dL (70-99) Calcium Level 8.8 mg/dL (8.5-10.1) Phosphorus Level 4.0 mg/dL (2.6-4.7) Magnesium Level 1.6 mg/dL (1.8-2.4) Total Bilirubin 0.6 mg/dL (0.2-1.0) Aspartate Amino Transf (AST/SGOT) 19 U/L (15-37) Alanine Aminotransferase (ALT/SGPT) 20 U/L (14-59) Alkaline Phosphatase 72 U/L (46-116) Creatine Kinase 35 U/L (26-192) Troponin I High Sensitivity 175 ng/L (4-50) 169 ng/L (4-50) Total Protein 7.6 g/dL (6.4-8.2) Albumin 3.1 g/dL (3.4-5.0) Albumin/Globulin Ratio 0.7 (1.0-1.7) Laboratory Tests Test 01/28/22 10:30 01/28/22 15:03 White Blood Count 5.7 x10^3/uL (4.0-11.0) Red Blood Count 3.63 x10^6/uL (3.50-5.40) Hemoglobin 9.5 g/dL (12.0-15.5) Hematocrit 29.2 % (36.0-47.0) Mean Corpuscular Volume 80 fL (79-100) Mean Corpuscular Hemoglobin 26 pg (25-35) Mean Corpuscular Hemoglobin Concent 33 g/dL (31-37) Red Cell Distribution Width 15.6 % (11.5-14.5) Platelet Count 307 x10^3/uL (140-400) Neutrophils (%) (Auto) 92 % (31-73) Lymphocytes (%) (Auto) 6 % (24-48) Monocytes (%) (Auto) 2 % (0-9) Eosinophils (%) (Auto) 0 % (0-3) Basophils (%) (Auto) 0 % (0-3) Neutrophils # (Auto) 5.3 x10^3/uL (1.8-7.7) Lymphocytes # (Auto) 0.3 x10^3/uL (1.0-4.8) Monocytes # (Auto) 0.1 x10^3/uL (0.0-1.1) Eosinophils # (Auto) 0.0 x10^3/uL (0.0-0.7) Basophils # (Auto) 0.0 x10^3/uL (0.0-0.2) Segmented Neutrophils % 90 % (35-66) Lymphocytes % 6 % (24-48) Monocytes % 3 % (0-10) Basophils % 1 % (0-3) Platelet Estimate Adequate (ADEQUATE) Sodium Level 135 mmol/L (136-145) Potassium Level 4.0 mmol/L (3.5-5.1) Chloride Level 96 mmol/L (98-107) Carbon Dioxide Level 26 mmol/L (21-32) Anion Gap 13 (6-14) Blood Urea Nitrogen 26 mg/dL (7-20) Creatinine 1.1 mg/dL (0.6-1.0) Estimated GFR (Cockcroft-Gault) 56.7 BUN/Creatinine Ratio 24 (6-20) Glucose Level 145 mg/dL (70-99) Calcium Level 8.8 mg/dL (8.5-10.1) Phosphorus Level 4.0 mg/dL (2.6-4.7) Magnesium Level 1.6 mg/dL (1.8-2.4) Total Bilirubin 0.6 mg/dL (0.2-1.0) Aspartate Amino Transf (AST/SGOT) 19 U/L (15-37) Alanine Aminotransferase (ALT/SGPT) 20 U/L (14-59) Alkaline Phosphatase 72 U/L (46-116) Creatine Kinase 35 U/L (26-192) Troponin I High Sensitivity 175 ng/L (4-50) 169 ng/L (4-50) Total Protein 7.6 g/dL (6.4-8.2) Albumin 3.1 g/dL (3.4-5.0) Albumin/Globulin Ratio 0.7 (1.0-1.7) Assessment/Plan Assessment/Plan Syncope related to hypotension, overmedicated for hypertension?, Troponinemia, anxiety GERD hypertension hypothyroid -Syncopal episode at assisted living facility. Seem to be related to hypotension with clonidine patch improvement in symptoms after this was removed -We will obviously hold home clonidine patch for now. Okay to resume other home BP meds -Elevated troponins continue to trend overnight. -Cardiology consulted -Check TSH -PT OT -DVT prophylaxis -Cardiac diet -Home meds as indicated Justifications for Admission Other Justification MARINA MALAVE MD Jan 29, 2022 08:12
[2022-01-29] MEDS ORDERED: CETIRIZINE HCL 10 MG TABLET. PO SCH (09:00)
[2022-01-29] MEDS ORDERED: LISINOPRIL 20 MG TABLET PO SCH (09:00)
[2022-01-29] MEDS ORDERED: hydroCHLOROthiazide 12.5 MG CAPSULE PO SCH (09:00)
[2022-01-29 10:50] VITALS: BP 112/67
--- NOTE | 2022-01-29 10:52 | SNU/HH DC ---
DISCHARGE ORDERS DISCHARGE INFORMATION: FINAL DIAGNOSIS Problems Medical Problems: (1) Elevated troponin Status: Acute (2) Syncope Status: Acute CONDITION ON DISCHARGE: Stable CODE STATUS: Code Status: Full FPC: SNF STAY <30 DAYS: No HOSPICE: HOSPICE: No HOSPICE EVAL & TREAT: No LTAC: ADMIT TO LTAC: No POST DISCHARGE ORDERS: ACTIVITY ORDERS: Activity as tolerated DIET AFTER DISCHARGE: Cardiac WOUND/INCISION CARE: No wound care needed CHECKS AFTER DISCHARGE: CHECKS AFTER DISCHARGE: Check blood press - daily, Check your Temp as needed DISCHARGE MEDICATIONS: Home Meds Reported Medications Cholecalciferol (Vitamin D3) (D3 Dots) 50 Mcg Tablet, 50 MCG PO DAILY for replacement, TAB 01/28/22 Levothyroxine Sodium (SYNTHROID) 50 Mcg Tablet, 1 TAB PO DAILY for replacement, #30 TAB 5 Refills 01/28/22 Atorvastatin Calcium (ATORVASTATIN CALCIUM) 20 Mg Tablet, 10 MG PO HS for FOR CHOLESTEROL, #30 TAB 0 Refills 01/25/21 Hydrochlorothiazide (HYDROCHLOROTHIAZIDE CAPSULE ) 12.5 Mg Capsule, 12.5 MG PO DAILY for DIURETIC, CAP 0 Refills 01/25/21 Metoprolol Tartrate (METOPROLOL TARTRATE) 50 Mg Tablet, 50 MG PO BID for FOR HYPERTENSION, #60 TAB 0 Refills 01/25/21 Multivitamin (Multivitamin) 1 Each Tablet, 1 EACH PO DAILY for SUPPLEMENT, TAB 01/23/21 Guaifenesin/Pseudoephedrne Hcl (MUCUS RELIEF D TABLET) 1 Each Tablet, 1 EACH PO Q12HR for COUGH, TAB 01/23/21 Benzonatate (BENZONATATE) 200 Mg Capsule, 200 MG PO PRN Q8HRS PRN for COUGH, CAP 01/23/21 Alprazolam (ALPRAZOLAM) 0.25 Mg Tablet, 1 TAB PO PRN QHS PRN for INSOMNIA, #30 TAB 01/23/21 Acetaminophen (ACETAMINOPHEN) 325 Mg Tablet, 2 TAB PO PRN Q8HRS PRN for PAIN for 30 Days, #30 TAB 0 Refills 01/23/21 Potassium Chloride (POTASSIUM CHLORIDE) 8 Meq Capsule.er, 1 CAP PO QODAY for SUPPLEMENT for 30 Days, #30 CAP 0 Refills 01/23/21 Lisinopril (LISINOPRIL) 40 Mg Tablet, 1 TAB PO DAILY for LOWERS BP, #30 TAB 5 Refills 01/23/21 Calcium Carbonate (CALCIUM CARBONATE) 500 Mg Tablet, 3 TAB PO BID for STOMACH for 30 Days, #180 TAB 0 Refills 01/23/21 Alendronate Sodium (ALENDRONATE SODIUM) 70 Mg Tablet, 1 TAB PO QFR for OSTEOP, #12 TAB 3 Refills 01/23/21 Latanoprost (XALATAN) 2.5 Ml Drops, 1 DROP EACHEYE QHS for GLAUCOMA, #7.5 ML 3 Refills 01/23/21 Fexofenadine Hcl (CESAR ALLERGY) 180 Mg Tablet, 1 TAB PO DAILY for allergy symptoms for 14 Days, #14 TAB 0 Refills 01/23/21 Brimonidine Tartrate/Timolol (COMBIGAN EYE DROPS) 5 Ml Drops, 5 ML OP BID for RIGHT EYE, DROP 01/23/21 [Iron] No Conflict Check 01/29/19 Famotidine (PEPCID) 20 Mg Tablet, 20 MG PO BID, TAB 01/29/19 Discontinued Reported Medications Clonidine (CLONIDINE TTS-1 ) 1 Each Patch.tdwk, 1 PATCH TD WEEKLY for HYPERTENSION, PATCH 01/25/21 Clonidine Hcl (CLONIDINE HCL) 0.1 Mg Tablet, 0.1 MG PO PRN Q4HRS PRN for HIGH BP, TAB 01/23/21 AMISHA OROZCO III DO Jan 29, 2022 10:52
--- NOTE | 2022-01-29 11:58 | NUR ---
Discharge Note: MERLOS,DEVON V[address] [facility] Discharge instructions and discharge home medications reviewed with Patient and a copy given. All questions have been answered and understanding verbalized. The following instructions and handouts were given: d/c instructions given and reviewed with patient. Understanding instructions. Waiting on to set up transportation time. Discontinued lines and drains: Peripheral IV intact. Patient discharged to Home or Self Care with Ambulance Personnel via Wheelchair
--- NOTE | 2022-01-29 12:07 | NUR ---
SS following for discharge planning. SS reviewed pt chart and discussed with pt RN. Pt is from [facility], ; fax [phone], and is currently on room air. Discharge orders received for return to facility and phoned and faxed to [facility] with clinical. Pt reporting that she needs transportation to home. Pt will discharge today and return to [facility] between 1500 and 1530 via [facility], . Pt and pt's RN notified. Packet placed on chart.
--- NOTE | 2022-01-29 16:22 | PDOC2 ---
CONSULT Date of Consult Date of Consult DATE: 01/29/22 TIME: 16:22 Reason for Consult Reason for Consult: Syncope Referring Physician Referring Physician: Dr. Gonzalez Identification/Chief Complaint Chief Complaint Syncope Source Source: Chart review, Patient History of Present Illness Reason for Visit: 86-year-old female with history of sick sinus syndrome s/p permanent pacemaker implantation apparently was sitting at her breakfast table at assisted living facility when she had an episode of syncope. EMS found her hypotensive but improved after her clonidine patch was removed. She denied any lack of appetite, nausea, vomiting or diarrhea. She also denied any chest pain, or thopnea/PND or palpitations. Past Medical History Cardiovascular: HTN, Valve insufficiency, Other (Sick sinus syndrome) GI: Constipation, GERD Psych: Anxiety Musculoskeletal: Osteoarthritis Endocrine: Hypothyroidism, Osteoporosis Past Surgical History Past Surgical History: Pacemaker, Appendectomy, Arthroscopy, Hysterectomy Social History ALCOHOL: none Drugs: None Lives: Detention Current Problem List Problem List Problems Medical Problems: (1) Elevated troponin Status: Acute (2) Syncope Status: Acute Current Medications Current Medications Current Medications Aspirin (Aspirin Chewable) 324 mg 1X ONCE PO Last administered on 01/28/22at 12:21; Start 01/28/22 at 11:15; Stop 01/28/22 at 11:16; Status DC Alprazolam (Xanax) 0.25 mg PRN QHS PRN PO INSOMNIA; Start 01/28/22 at 13:45 Atorvastatin Calcium (Lipitor) 10 mg QHS PO Last administered on 01/28/22at 21:07; Start 01/28/22 at 21:00 Clonidine HCl (Catapres) 0.1 mg PRN Q4HRS PRN PO HIGH BP; Start 01/28/22 at 13:45 Famotidine (Pepcid) 20 mg QHS PO Last administered on 01/28/22at 21:07; Start 01/28/22 at 21:00 Hydrochlorothiazide (Microzide) 12.5 mg DAILY PO ; Start 01/28/22 at 14:00; Status Cancel Latanoprost (Xalatan) 1 drop QHS OU Last administered on 01/28/22at 21:07; Start 01/28/22 at 21:00 Levothyroxine Sodium (Synthroid) 50 mcg DAILY06 PO Last administered on 01/29/22at 05:43; Start 01/29/22 at 06:00 Lisinopril (Prinivil) 40 mg DAILY PO Last administered on 01/29/22at 08:01; Start 01/29/22 at 09:00 Metoprolol Tartrate (Lopressor) 50 mg BID PO Last administered on 01/29/22at 08:01; Start 01/28/22 at 21:00 Brimonidine Tartrate (Alphagan) 1 drop BID OU Last administered on 01/29/22at 08:02; Start 01/28/22 at 21:00 Cetirizine HCl (ZyrTEC) 10 mg DAILY PO Last administered on 01/29/22at 08:01; Start 01/29/22 at 09:00 Ondansetron HCl (Zofran) 4 mg PRN Q6HRS PRN IVP NAUSEA/VOMITING; Start 01/28/22 at 13:45 Calcium Carbonate/ Glycine (Tums) 500 mg PRN Q3HRS PRN PO UPSET STOMACH; Start 01/28/22 at 13:45 Info (Non-Icu Electrolyte Protocol) 1 ea PRN DAILY PRN MC SEE COMMENTS; Start 01/28/22 at 13:45 Oxycodone/ Acetaminophen (Percocet 5/325) 1 tab PRN Q4HRS PRN PO MILD PAIN, 1ST CHOICE; Start 01/28/22 at 13:45 Oxycodone/ Acetaminophen (Percocet 5/325) 2 tab PRN Q4HRS PRN PO MODERATE PAIN, SEVERE PAIN; Start 01/28/22 at 13:45 Acetaminophen (Tylenol) 650 mg PRN Q6HRS PRN PO Headaches, Temp > 101.5F; Start 01/28/22 at 13:45 Senna/Docusate Sodium (Senna Plus) 1 tab BID PO Last administered on 01/29/22at 08:01; Start 01/28/22 at 21:00 Heparin Sodium (Porcine) (Heparin Sodium) 5,000 unit Q8HRS SQ Last administered on 01/29/22at 05:44; Start 01/28/22 at 14:00 Hydrochlorothiazide (Microzide) 12.5 mg DAILY PO Last administered on 01/29/22at 08:01; Start 01/29/22 at 09:00 Timolol Maleate (Timoptic 0.25% Ophth) 1 drop BID OU Last administered on 01/29/22at 08:02; Start 01/28/22 at 21:00 Active Scripts Active Reported D3 Dots (Cholecalciferol (Vitamin D3)) 50 Mcg Tablet 50 Mcg PO DAILY Synthroid (Levothyroxine Sodium) 50 Mcg Tablet 1 Tab PO DAILY Atorvastatin Calcium 20 Mg Tablet 10 Mg PO HS Hydrochlorothiazide Capsule (Hydrochlorothiazide) 12.5 Mg Capsule 12.5 Mg PO DAILY Metoprolol Tartrate 50 Mg Tablet 50 Mg PO BID Multivitamin 1 Each Tablet 1 Each PO DAILY Mucus Relief D Tablet (Guaifenesin/Pseudoephedrne Hcl) 1 Each Tablet 1 Each PO Q12HR Benzonatate 200 Mg Capsule 200 Mg PO PRN Q8HRS PRN Alprazolam 0.25 Mg Tablet 1 Tab PO PRN QHS PRN Acetaminophen 325 Mg Tablet 2 Tab PO PRN Q8HRS PRN 30 Days Potassium Chloride 8 Meq Capsule.er 1 Cap PO QODAY 30 Days Lisinopril 40 Mg Tablet 1 Tab PO DAILY Calcium Carbonate 500 Mg Tablet 3 Tab PO BID 30 Days Alendronate Sodium 70 Mg Tablet 1 Tab PO QFR Xalatan (Latanoprost) 2.5 Ml Drops 1 Drop EACHEYE QHS Genesis Allergy (Fexofenadine Hcl) 180 Mg Tablet 1 Tab PO DAILY 14 Days Combigan Eye Drops (Brimonidine Tartrate/Timolol) 5 Ml Drops 5 Ml OP BID [Iron] Pepcid (Famotidine) 20 Mg Tablet 20 Mg PO BID Allergies Allergies: Coded Allergies: amoxicillin (Unverified Allergy, Intermediate, 01/29/19) sulfamethoxazole (Unverified Allergy, Intermediate, 01/29/19) trimethoprim (Unverified Allergy, Intermediate, 01/29/19) ROS PSYCHOLOGICAL ROS: No: Hallucinations Eyes: No Loss of vision HEENT: No: Epistaxis Respiratory: No: Hemoptysis, Shortness of breath Cardiovascular: No Chest Pain Gastrointestinal: No Vomiting Genitourinary: No Hematuria Neurological: Yes Other (Syncope); No Seizures Skin: No Rash Physical Exam General: Alert, No acute distress HEENT: Atraumatic Lungs: Clear to auscultation Heart: Regular rate, Other (ESM aortic) Abdomen: Soft Extremities: No edema Neuro: Normal speech Psych/Mental Status: Mood NL Vitals VITALS Vital Signs Date Time Temp Pulse Resp B/P (MAP) Pulse Ox O2 Delivery O2 Flow Rate FiO2 01/29/22 10:50 98.1 60 18 112/67 (82) 100 Room Air 98.1 Labs Labs Laboratory Tests Test 01/28/22 10:30 01/28/22 15:03 01/29/22 08:45 White Blood Count 5.7 x10^3/uL (4.0-11.0) Red Blood Count 3.63 x10^6/uL (3.50-5.40) Hemoglobin 9.5 g/dL (12.0-15.5) Hematocrit 29.2 % (36.0-47.0) Mean Corpuscular Volume 80 fL (79-100) Mean Corpuscular Hemoglobin 26 pg (25-35) Mean Corpuscular Hemoglobin Concent 33 g/dL (31-37) Red Cell Distribution Width 15.6 % (11.5-14.5) Platelet Count 307 x10^3/uL (140-400) Neutrophils (%) (Auto) 92 % (31-73) Lymphocytes (%) (Auto) 6 % (24-48) Monocytes (%) (Auto) 2 % (0-9) Eosinophils (%) (Auto) 0 % (0-3) Basophils (%) (Auto) 0 % (0-3) Neutrophils # (Auto) 5.3 x10^3/uL (1.8-7.7) Lymphocytes # (Auto) 0.3 x10^3/uL (1.0-4.8) Monocytes # (Auto) 0.1 x10^3/uL (0.0-1.1) Eosinophils # (Auto) 0.0 x10^3/uL (0.0-0.7) Basophils # (Auto) 0.0 x10^3/uL (0.0-0.2) Segmented Neutrophils % 90 % (35-66) Lymphocytes % 6 % (24-48) Monocytes % 3 % (0-10) Basophils % 1 % (0-3) Platelet Estimate Adequate (ADEQUATE) Sodium Level 135 mmol/L (136-145) Potassium Level 4.0 mmol/L (3.5-5.1) Chloride Level 96 mmol/L (98-107) Carbon Dioxide Level 26 mmol/L (21-32) Anion Gap 13 (6-14) Blood Urea Nitrogen 26 mg/dL (7-20) Creatinine 1.1 mg/dL (0.6-1.0) Estimated GFR (Cockcroft-Gault) 56.7 BUN/Creatinine Ratio 24 (6-20) Glucose Level 145 mg/dL (70-99) Calcium Level 8.8 mg/dL (8.5-10.1) Phosphorus Level 4.0 mg/dL (2.6-4.7) Magnesium Level 1.6 mg/dL (1.8-2.4) Total Bilirubin 0.6 mg/dL (0.2-1.0) Aspartate Amino Transf (AST/SGOT) 19 U/L (15-37) Alanine Aminotransferase (ALT/SGPT) 20 U/L (14-59) Alkaline Phosphatase 72 U/L (46-116) Creatine Kinase 35 U/L (26-192) Troponin I High Sensitivity 175 ng/L (4-50) 169 ng/L (4-50) Total Protein 7.6 g/dL (6.4-8.2) Albumin 3.1 g/dL (3.4-5.0) Albumin/Globulin Ratio 0.7 (1.0-1.7) Thyroid Stimulating Hormone (TSH) 2.974 uIU/mL (0.358-3.74) Laboratory Tests Test 01/29/22 08:45 Thyroid Stimulating Hormone (TSH) 2.974 uIU/mL (0.358-3.74) Assessment/Plan Assessment/Plan 1. Syncope, secondary to hypotension that improved after clonidine patch was removed. No significant arrhythmias noted on telemetry. 2D echo last year showed normal LV systolic function with diastolic dysfunction. No further cardiac work-up is indicated at this time. 2. Sick sinus syndrome s/p permanent pacemaker implantation. Her device was recently interrogated in our office and found to be functioning well. Her battery is approximately 9 months to ASHU and is currently being checked every 3 months. 3. h/o NSVT in the past without any further episodes. Continue beta-blockers. 4. Hypertension: Patient was hypotensive on presentation. Continue to hold clonidine and continue other medications. 5. Hypothyroidism: Continue levothyroxine Thank you for your consultation GARY MARTIN MD Jan 29, 2022 16:22
--- NOTE | 2022-01-30 12:45 | DS ---
DATE OF DISCHARGE: 01/29/2022 ADMISSION DIAGNOSIS: Syncope. DISCHARGE DIAGNOSES: Resolving syncope secondary to clonidine and hypotension. HOSPITAL COURSE: The patient is a pleasant 86-year-old female who presented with syncopal episode. She had slightly elevated troponin. She was admitted. We adjusted her blood pressure meds, stopped the clonidine, and she did well. Yesterday, I saw and examined her. She is ready to go home. We discharged back to [facility]. DISPOSITION: [facility]. ACTIVITY: As tolerated. DIET: Low sodium. DISCHARGE MEDICATIONS: Continue previous home medications, but stop the clonidine. TOTAL TIME: 31 minutes. TANO/CALIXTO DR: Raquel TID: [id number]
== END 2022-01-29 17:40 | disposition home or self-care (01) ==
LOC: ER 09:43 → 6 SOUTH 11:05 → INTOOBSV 11:05
PROVIDERS: ADMIT Student in an Organized Health Care Education/Training Program; ATTEND Student in an Organized Health Care Education/Training Program
DX: R55 Syncope and collapse (principal); D64.9 Anemia, unspecified; F41.9 Anxiety disorder, unspecified; K21.9 Gastro-esophageal reflux disease without esophagitis; I10 Essential (primary) hypertension; E03.9 Hypothyroidism, unspecified; I49.5 Sick sinus syndrome; M81.0 Age-related osteoporosis without current pathological fracture; R77.8 Other specified abnormalities of plasma proteins; I73.9 Peripheral vascular disease, unspecified; Z95.0 Presence of cardiac pacemaker; Z90.710 Acquired absence of both cervix and uterus; Z79.82 Long term (current) use of aspirin; Z79.899 Other long term (current) drug therapy; Z98.890 Other specified postprocedural states
CPT/HCPCS: 36415; 70450; 71045; 80053; 82550; 83735; 84100; 84443; 84484; 85007; 85025; 93005; 96372; 99285; G0378; J1644; G0379